=== PATIENT | female | born 1945 | race Caucasian/White ===

== ENCOUNTER 2018-12-27 10:41 | Emergency (ER) | payer MEDICARE, OTHER ==
[2018-12-27] MEDS ORDERED: NORMAL SALINE 1000 ML 1,000 ML IV ONE (11:01)
[2018-12-27 11:13] LABS: VENOUS BLOOD BASE EXCESS 1.1 mmol/L; VENOUS BLOOD HCO3 24.1 mmol/L (20-32); VENOUS BLOOD PCO2 33.4 mmHg (35-63); VENOUS BLOOD PH 7.48 (7.30-7.42)
[2018-12-27 11:14] LABS: ABSOLUTE BASOPHILS # (AUTO) 0.1 10^3/uL (0.0-0.2); ABSOLUTE EOSINOPHILS # (AUTO) 0.1 10^3/uL (0.0-0.6); ABSOLUTE LYMPHOCYTES (AUTO) 2.3 10^3/uL (0.5-4.7); ABSOLUTE MONOCYTES (AUTO) 0.8 10^3/uL (0.1-1.4); ABSOLUTE NEUT (AUTO) 7.7 10^3/uL (1.7-8.2); BASOPHILS % (AUTO) 0.5 % (0-2); EOSINOPHILS % (AUTO) 0.8 % (0-6); HEMATOCRIT 31.9 % (36.0-47.0); HEMOGLOBIN 11.1 g/dL (12.0-15.5); LYMPHOCYTES % (AUTO) 21.2 % (13-45); MEAN CORPUSCULAR HEMOGLOBIN 32.2 pg (27.0-33.4); MEAN CORPUSCULAR HGB CONC 34.8 g/dL (32.0-36.0); MEAN CORPUSCULAR VOLUME 93 fl (80-97); MONOCYTES % (AUTO) 7.3 % (3-13); PLATELET COUNT 215 10^3/uL (150-450); RED BLOOD COUNT 3.45 10^6/uL (3.72-5.28); RED CELL DISTRIBUTION WIDTH 15.2 % (11.5-14.0); SEGMENTED NEUTROPHILS % (AUTO) 70.2 % (42-78); TOTAL CELLS COUNTED % (AUTO) 100 %
[2018-12-27 11:20] LABS: INTERNATIONAL RATION (INR) 1.16; PROTHROMBIN TIME 15.4 SEC (11.4-15.4)
--- NOTE | 2018-12-27 11:34 | RADIOLOGY REPORT (SQ) ---
EXAM DESCRIPTION: CHEST SINGLE VIEW COMPLETED DATE/TIME: 12/27/2018 11:25 am REASON FOR STUDY: bed 5 sepsis protocol COMPARISON: None. EXAM PARAMETERS: NUMBER OF VIEWS: One view. TECHNIQUE: Single frontal radiographic view of the chest acquired. RADIATION DOSE: NA LIMITATIONS: None. FINDINGS: LUNGS AND PLEURA: No opacities, masses or pneumothorax. No pleural effusion. MEDIASTINUM AND HILAR STRUCTURES: No masses. Contour normal. HEART AND VASCULAR STRUCTURES: Heart normal in size. Normal vasculature. BONES: No acute findings. HARDWARE: None in the chest. OTHER: No other significant finding. IMPRESSION: NO ACUTE RADIOGRAPHIC FINDING IN THE CHEST. TECHNICAL DOCUMENTATION: JOB ID: [id number] [employer] [place]- All Rights Reserved Reading location - IP/workstation name: [email or web address]
[2018-12-27 11:35] LABS: ALANINE AMINOTRANSFERASE 22 U/L (9-52); ALBUMIN 4.4 g/dL (3.5-5.0); ALKALINE PHOSPHATASE 39 U/L (38-126); ANION GAP 14 (5-19); ASPARTATE AMINO TRANSFERASE 27 U/L (14-36); BILIRUBIN,DIRECT 0.3 mg/dL (0.0-0.4); BILIRUBIN,TOTAL 0.5 mg/dL (0.2-1.3); BLOOD UREA NITROGEN 28 mg/dL (7-20); CALCIUM 9.5 mg/dL (8.4-10.2); CARBON DIOXIDE 24 mmol/L (22-30); CHLORIDE 103 mmol/L (98-107); GLUCOSE 101 mg/dL (75-110); LIPASE 125.8 U/L (23-300); POTASSIUM 4.6 mmol/L (3.6-5.0); SODIUM 140.7 mmol/L (137-145); TOTAL PROTEIN 6.8 g/dL (6.3-8.2)
[2018-12-27 12:19] LABS: APPEARANCE,URINE SLIGHTLY-CLOUDY; BILIRUBIN,URINE NEGATIVE (NEGATIVE); COLOR,URINE YELLOW; GLUCOSE, URINE NEGATIVE (NEGATIVE); KETONES,URINE NEGATIVE (NEGATIVE); LEUKOCYTE ESTERASE,URINE NEGATIVE (NEGATIVE); NITRITE,URINE NEGATIVE (NEGATIVE); PROTEIN,URINE NEGATIVE (NEGATIVE); URINE SPECIFIC GRAVITY 1.013; UROBILINOGEN,URINE NEGATIVE mg/dL (<2.0)
--- NOTE | 2018-12-27 13:49 | ER Document Report ---
ED General - General Chief Complaint: Shortness Of Breath Stated Complaint: DIFFICULTY BREATHING Time Seen by Provider: 12/27/18 10:57 - HPI Patient complains to provider of: Shortness of breath Notes: Patient coming in for evaluation of shortness of breath. Patient is coming in from local rehab facility. Patient states she is extremely short of breath however is complaining complete sentences patient denies any chest pain abdominal pain denies any fevers or chills denies any sputum production. Shant cuevas does not look to be any obvious distress upon my evaluation. - Related Data Allergies/Adverse Reactions: No Known Allergies Allergy (Unverified 12/27/18 11:15) Past Medical History - Social History Smoking Status: Never Smoker Chew tobacco use (# tins/day): No Frequency of alcohol use: None Drug Abuse: None Family History: Reviewed & Not Pertinent Patient has suicidal ideation: No Patient has homicidal ideation: No Endocrine Medical History: Reports: Hx Diabetes Mellitus Type 2 Renal/ Medical History: Denies: Hx Peritoneal Dialysis Psychiatric Medical History: Reports: Hx Depression Past Surgical History: Reports: Hx Hysterectomy, Hx Orthopedic Surgery - bilateral knees Review of Systems - Review of Systems Constitutional: No symptoms reported EENT: No symptoms reported Cardiovascular: Dyspnea Respiratory: No symptoms reported Gastrointestinal: No symptoms reported Genitourinary: No symptoms reported Female Genitourinary: No symptoms reported Musculoskeletal: No symptoms reported Skin: No symptoms reported Hematologic/Lymphatic: No symptoms reported Neurological/Psychological: No symptoms reported -: Yes All other systems reviewed and negative Physical Exam - Vital signs Vitals: Resp Pulse Ox 22 H 100 12/27/18 10:46 12/27/18 10:46 Interpretation: Normal - General General appearance: Appears well, Alert - HEENT Head: Normocephalic, Atraumatic Eyes: Normal Pupils: PERRL - Respiratory Respiratory status: No respiratory distress Chest status: Nontender Breath sounds: Normal Chest palpation: Normal - Cardiovascular Rhythm: Regular Heart sounds: Normal auscultation Murmur: No - Abdominal Inspection: Normal Distension: No distension Bowel sounds: Normal Tenderness: Nontender Organomegaly: No organomegaly - Back Back: Normal, Nontender - Extremities General upper extremity: Normal inspection, Nontender, Normal color, Normal ROM, Normal temperature General lower extremity: Normal inspection, Nontender, Normal color, Normal ROM, Normal temperature, Normal weight bearing. No: Michaela's sign - Neurological Neuro grossly intact: Yes Cognition: Normal Orientation: AAOx4 Yohannes Coma Scale Eye Opening: Spontaneous [place] Coma Scale Verbal: Oriented [place] Coma Scale Motor: Obeys Commands Yohannes Coma Scale Total: 15 Speech: Normal Motor strength normal: LUE, RUE, LLE, RLE Sensory: Normal - Psychological Associated symptoms: Normal affect, Normal mood - Skin Skin Temperature: Warm Skin Moisture: Dry Skin Color: Normal Course - Re-evaluation Re-evalutation: 12/27/18 18:04 Laboratory examination and physical examination not reveal any critical pathology for the patient's shortness of breath. After observation. Here in ER IV fluids the reevaluate patient patient states that without any treatment for her shortness of breath patient feels better. Patient will be discharged back to the nursing care facility return to the ER if any symptoms worsen. - Vital Signs Vital signs: Temp Pulse Resp BP Pulse Ox 98.0 F 81 22 H 102/48 L 99 12/27/18 17:14 12/27/18 17:15 12/27/18 17:15 12/27/18 17:15 12/27/18 17:15 - Laboratory Result Diagrams: 12/27/18 10:50 12/27/18 10:50 Laboratory results interpreted by me: 12/27/18 12/27/18 12/27/18 10:50 10:50 10:50 WBC 11.0 H RBC 3.45 L Hgb 11.1 L Hct 31.9 L RDW 15.2 H VBG pH VBG pCO2 BUN 28 H Creatinine 1.32 H Est GFR ( Amer) 48 L Est GFR (Non-Af Amer) 40 L Lactic Acid 2.3 H 12/27/18 10:50 WBC RBC Hgb Hct RDW VBG pH 7.48 H VBG pCO2 33.4 L BUN Creatinine Est GFR ( Amer) Est GFR (Non-Af Amer) Lactic Acid Discharge - Discharge Clinical Impression: Dyspnea Qualifiers: Dyspnea type: other forms of dyspnea Qualified Code(s): R06.09 - Other forms of dyspnea Condition: Good Disposition: HOME, SELF-CARE Instructions: Dyspnea, Nonspecific ([facility]) Additional Instructions: Patient was seen for dyspnea at this time there is no signs of any pneumonia or heart failure or critical pathology on the patient's workup here in the ER. I would recommend that you follow-up with your primary care physician in the next 48 hours continue all home medications.
[2018-12-27 17:16] VITALS: BP 102/48
--- NOTE | 2018-12-27 21:37 | EKG REPORT ---
SEVERITY:- ABNORMAL ECG - SINUS RHYTHM : Confirmed by: Jeevan Donald 27-Dec-2018 21:37:08
== END 2018-12-27 17:17 | disposition home or self-care (01) ==
LOC: ER 10:41
DX: R06.02 Shortness of breath (principal); E11.9 Type 2 diabetes mellitus without complications
CPT/HCPCS: 93005; 99285; 51701; 36415; 87040; 87086; 82962; 83690; 85025; 85610; 87088; 80053; 81001; 82803; 83605; 71045; 93010; J7030

== ENCOUNTER 2019-02-24 09:58 | Inpatient (IN) | payer MEDICARE ==
[2019-02-24] MEDS ORDERED: NORMAL SALINE 1000 ML 1,000 ML IV ONE (10:14)
[2019-02-24] MEDS ORDERED: RINGERS SOLUTION,LACTATED 1,000 ML IV ONE (10:15)
--- NOTE | 2019-02-24 10:16 | ER Document Report ---
ED General - General Chief Complaint: hypotension Stated Complaint: BLOOD PRESSURE ISSUES Time Seen by Provider: 02/24/19 10:07 Notes: Patient is a 73-year-old female with dementia, diabetes mellitus, CHF, hypertension hyperlipidemia that presents to the emergency department for chief complaint of hypertension, and shortness of breath. Patient lives in a longterm, apparently had abnormal blood work, concerning for possible heart attack, she has been short of breath, patient is a very poor historian, due to her dementia and cannot provide much extra history. She apparently had an abnormal EKG as well as an outpatient. She denies any fevers, nausea, vomiting or diarrhea. Denies any chest pain at this time. No other history obtainable at this time. Past Medical History: Diabetes mellitus, CHF, GERD, hypertension, hyperlipidemia , dementia Past Surgical History: Reviewed, and not pertinent to presentation Social History: Lives in a longterm, no smoking currently Family History: Reviewed and noncontributory for presenting illness Allergies: Reviewed, see documented allergy list. REVIEW OF SYSTEMS: Complete review of systems is not obtainable at this time secondary to the patient's dementia PHYSICAL EXAMINATION: Vital signs reviewed, nursing noted reviewed. GENERAL: Elderly female, no acute distress, but does appear mildly confused, likely baseline HEAD: Atraumatic, normocephalic. EYES: Eyes appear normal, extraocular movements intact, sclera anicteric, conjunctiva are normal. ENT: nares patent, oropharynx clear without exudates. Moist mucous membranes. NECK: Normal range of motion, supple without lymphadenopathy LUNGS: Lung sounds diminished at the bases bilaterally, no acute respiratory distress HEART: Regular rate and rhythm without murmurs ABDOMEN: Soft, obese, nontender, normoactive bowel sounds. No rebound, guarding, or rigidity. No masses appreciated. EXTREMITIES: Nontender, good range of motion, bilateral lower extremity 2+ edema to the proximal tibias NEUROLOGICAL: No focal neurological deficits. Moves all extremities spontaneously Motor and sensory grossly intact on exam. PSYCH: Flat affect, appropriate but mildly confused SKIN: Warm, Dry, normal turgor, no rashes or lesions noted on exposed skin TRAVEL OUTSIDE OF THE [place] IN LAST 30 DAYS: No - Related Data Allergies/Adverse Reactions: No Known Allergies Allergy (Unverified 12/27/18 11:15) Past Medical History - Social History Smoking Status: Unknown if Ever Smoked Family History: Reviewed & Not Pertinent Endocrine Medical History: Reports: Hx Diabetes Mellitus Type 2 Renal/ Medical History: Denies: Hx Peritoneal Dialysis Psychiatric Medical History: Reports: Hx Depression Past Surgical History: Reports: Hx Hysterectomy, Hx Orthopedic Surgery - bi lateral knees Physical Exam - Vital signs Vitals: Resp 14 02/24/19 10:08 Course - Re-evaluation Re-evalutation: Patient seen and examined vital signs reviewed. Laboratory data and imaging were ordered as appropriate for the patient's presenting symptoms and complaint, with consideration of any critical or life threatening conditions that may be associated with their obtained history and exam as noted above. Patient was treated with IV fluids, and hyperkalemia cocktail including Kayexalate, calcium gluconate, sodium bicarb and placed on the sodium bicarb infusion at 150 mL's an hour, also given IV insulin and dextrose. Results were reviewed when available and demonstrated significant acute renal failure, with hyperkalemia of 6.6, severe metabolic acidosis, pH on VBG was 7.17, lactic acid was normal, no hyperglycemia The patient was re-evaluated and was improved, she initially was hypotensive, with fluid resuscitation, her blood pressure improved, patient was able to get up to the bedside commode, without orthostasis. Evaluation was most consistent with severe hyperkalemia, severe metabolic acidosis, dehydration, and acute renal failure. Results were discussed with the patient at this point after careful consideration I feel that that patient should be admitted to the hospital. This was discussed with the patient that it is in the best interest for their care to be admitted for further evaluation and management. Patient agreed with this plan of care. A call was placed to the admitted physician, Dr. Toro who graciously accepted the patient onto their service, to admit to the ICU. *Note is created using voice recognition software and may contain spelling, syntax or grammatical errors. Laboratory 02/24/19 02/24/19 02/24/19 09:40 09:40 09:40 WBC 8.7 RBC 3.43 L Hgb 11.3 L Hct 33.8 L MCV 99 H MCH 33.1 MCHC 33.5 RDW 13.8 Plt Count 183 Seg Neutrophils % 68.2 Lymphocytes % 22.4 Monocytes % 7.4 Eosinophils % 1.6 Basophils % 0.4 Absolute Neutrophils 5.9 Absolute Lymphocytes 2.0 Absolute Monocytes 0.6 Absolute Eosinophils 0.1 Absolute Basophils 0.0 PT 14.0 INR 1.03 VBG pH VBG pCO2 VBG HCO3 VBG Base Excess Sodium 136.9 L Potassium 6.6 H* Chloride 113 H Carbon Dioxide 13 L Anion Gap 11 BUN 72 H Creatinine 3.61 H Est GFR ( Amer) 15 L Est GFR (Non-Af Amer) 12 L Glucose 120 H Lactic Acid Calcium 10.7 H Total Bilirubin 0.5 Direct Bilirubin 0.3 Neonat Total Bilirubin Not Reportable Neonat Direct Bilirubin Not Reportable Neonat Indirect Bili Not Reportable AST 25 ALT 11 Alkaline Phosphatase 35 L Creatine Kinase CK-MB (CK-2) Troponin I Total Protein 7.6 Albumin 4.5 02/24/19 02/24/19 02/24/19 09:40 09:40 09:40 WBC RBC Hgb Hct MCV MCH MCHC RDW Plt Count Seg Neutrophils % Lymphocytes % Monocytes % Eosinophils % Basophils % Absolute Neutrophils Absolute Lymphocytes Absolute Monocytes Absolute Eosinophils Absolute Basophils PT INR VBG pH VBG pCO2 VBG HCO3 VBG Base Excess Sodium Potassium Chloride Carbon Dioxide Anion Gap BUN Creatinine Est GFR ( Amer) Est GFR (Non-Af Amer) Glucose Lactic Acid Calcium Total Bilirubin Direct Bilirubin Neonat Total Bilirubin Neonat Direct Bilirubin Neonat Indirect Bili AST ALT Alkaline Phosphatase Creatine Kinase 44 CK-MB (CK-2) 0.64 Troponin I < 0.012 Total Protein Albumin 02/24/19 02/24/19 10:18 11:30 WBC RBC Hgb Hct MCV MCH MCHC RDW Plt Count Seg Neutrophils % Lymphocytes % Monocytes % Eosinophils % Basophils % Absolute Neutrophils Absolute Lymphocytes Absolute Monocytes Absolute Eosinophils Absolute Basophils PT INR VBG pH 7.17 L* VBG pCO2 37.7 VBG HCO3 13.4 L VBG Base Excess -14.2 Sodium Potassium Chloride Carbon Dioxide Anion Gap BUN Creatinine Est GFR ( Amer) Est GFR (Non-Af Amer) Glucose Lactic Acid 1.9 Calcium Total Bilirubin Direct Bilirubin Neonat Total Bilirubin Neonat Direct Bilirubin Neonat Indirect Bili AST ALT Alkaline Phosphatase Creatine Kinase CK-MB (CK-2) Troponin I Total Protein Albumin Chest X-Ray 02/24/19 10:15 IMPRESSION: NO ACUTE RADIOGRAPHIC FINDING IN THE CHEST. 02/24/19 14:16 - Vital Signs Vital signs: Temp Pulse Resp BP Pulse Ox 98.0 F 19 105/61 93 02/24/19 10:23 02/24/19 13:01 02/24/19 13:00 02/24/19 13:00 - Laboratory Result Diagrams: 02/24/19 09:40 02/24/19 09:40 Laboratory results interpreted by me: 02/24/19 02/24/19 02/24/19 09:40 09:40 11:30 RBC 3.43 L Hgb 11.3 L Hct 33.8 L MCV 99 H VBG pH 7.17 L* VBG HCO3 13.4 L Sodium 136.9 L Potassium 6.6 H* Chloride 113 H Carbon Dioxide 13 L BUN 72 H Creatinine 3.61 H Est GFR ( Amer) 15 L Est GFR (Non-Af Amer) 12 L Glucose 120 H Calcium 10.7 H Alkaline Phosphatase 35 L - EKG Interpretation by Me Additional EKG results interpreted by me: EKG demonstrates sinus rhythm with a ventricular rate of 79 bpm, normal axis, QTC 381 ms, no evidence of acute ischemia in this EKG this is compared with the prior EKG from 12/27/2018, without significant change. Critical Care Note - Critical Care Note Total time excluding time spent on procedures (mins): 55 Comments: Critical care time 55 minutes exclusive from separate billable procedures for a patient requiring complex medical decision making, and high potential for clinical deterioration. In a patient with acute hyperkalemia, renal failure, requiring resuscitation, and active management. Time spent obtaining history from patient or surrogate, discussions with consultants, development of treatment plan with patient or surrogate, evaluation of patient's response to treatment, examination of patient, ordering and performing treatments and interventions, ordering and review of laboratory studies, re-evaluation of patient's condition, ordering and review of radiographic studies and review of old charts Discharge - Discharge Clinical Impression: Metabolic acidosis, Hyperkalemia Acute renal failure Qualifiers: Acute renal failure type: unspecified Qualified Code(s): N17.9 - Acute kidney failure, unspecified Condition: Serious Disposition: ADMITTED INPATIENT Admitting Provider: Muna (Hospitalist) Unit Admitted: ICU
[2019-02-24 10:29] LABS: INTERNATIONAL RATION (INR) 1.03
[2019-02-24 10:37] LABS: ABSOLUTE EOSINOPHILS # (AUTO) 0.1 10^3/uL (0.0-0.6); ABSOLUTE MONOCYTES (AUTO) 0.6 10^3/uL (0.1-1.4); ABSOLUTE NEUT (AUTO) 5.9 10^3/uL (1.7-8.2); BASOPHILS % (AUTO) 0.4 % (0-2); EOSINOPHILS % (AUTO) 1.6 % (0-6); HEMATOCRIT 33.8 % (36.0-47.0); HEMOGLOBIN 11.3 g/dL (12.0-15.5); LYMPHOCYTES % (AUTO) 22.4 % (13-45); MEAN CORPUSCULAR HEMOGLOBIN 33.1 pg (27.0-33.4); MEAN CORPUSCULAR HGB CONC 33.5 g/dL (32.0-36.0); MEAN CORPUSCULAR VOLUME 99 fl (80-97); MONOCYTES % (AUTO) 7.4 % (3-13); PLATELET COUNT 183 10^3/uL (150-450); RED BLOOD COUNT 3.43 10^6/uL (3.72-5.28); RED CELL DISTRIBUTION WIDTH 13.8 % (11.5-14.0); SEGMENTED NEUTROPHILS % (AUTO) 68.2 % (42-78); TOTAL CELLS COUNTED % (AUTO) 100 %; WHITE BLOOD COUNT 8.7 10^3/uL (4.0-10.5)
--- NOTE | 2019-02-24 10:39 | RADIOLOGY REPORT (SQ) ---
EXAM DESCRIPTION: CHEST SINGLE VIEW COMPLETED DATE/TIME: 02/24/2019 10:30 am REASON FOR STUDY: dyspnea COMPARISON: 12/27/2018 EXAM PARAMETERS: NUMBER OF VIEWS: One view. TECHNIQUE: Single frontal radiographic view of the chest acquired. RADIATION DOSE: NA LIMITATIONS: None. FINDINGS: LUNGS AND PLEURA: No opacities, masses or pneumothorax. No pleural effusion. MEDIASTINUM AND HILAR STRUCTURES: No masses. Contour normal. HEART AND VASCULAR STRUCTURES: Heart normal in size. Normal vasculature. BONES: No acute findings. HARDWARE: None in the chest. OTHER: No other significant finding. IMPRESSION: NO ACUTE RADIOGRAPHIC FINDING IN THE CHEST. TECHNICAL DOCUMENTATION: JOB ID: [id number] [employer]- All Rights Reserved Reading location - IP/workstation name: [email or web address]
[2019-02-24 10:49] LABS: ALANINE AMINOTRANSFERASE 11 U/L (9-52); ALBUMIN 4.5 g/dL (3.5-5.0); ALKALINE PHOSPHATASE 35 U/L (38-126); ANION GAP 11 (5-19); ASPARTATE AMINO TRANSFERASE 25 U/L (14-36); BILIRUBIN,DIRECT 0.3 mg/dL (0.0-0.4); BILIRUBIN,TOTAL 0.5 mg/dL (0.2-1.3); BLOOD UREA NITROGEN 72 mg/dL (7-20); CALCIUM 10.7 mg/dL (8.4-10.2); CARBON DIOXIDE 13 mmol/L (22-30); CHLORIDE 113 mmol/L (98-107); GLUCOSE 120 mg/dL (75-110); SODIUM 136.9 mmol/L (137-145); TOTAL PROTEIN 7.6 g/dL (6.3-8.2)
[2019-02-24 10:53] LABS: POTASSIUM 6.6 mmol/L (3.6-5.0)
[2019-02-24] MEDS ORDERED: INSULIN REG, HUMAN 100 UNIT/ML 3 ML VIAL (PYX) IV ONE (10:56)
[2019-02-24] MEDS ORDERED: SODIUM BICARBONATE 8.4% INJ 50 MEQ/50 ML DISP.SYRIN IV ONE ×2 (10:56→12:12)
[2019-02-24] MEDS ORDERED: DEXTROSE 50%-WATER 25 GM/50 ML DISP.SYRIN IV ONE (10:56)
[2019-02-24] MEDS ORDERED: CALCIUM GLUCONATE 1000 MG/10 ML INJ IV ONE (10:56)
[2019-02-24] MEDS ORDERED: SODIUM POLYSTYRENE SULFONATE 15 GM/60 ML PO ONE ×2 (10:57→16:19)
[2019-02-24 12:06] LABS: VENOUS BLOOD BASE EXCESS -14.2 mmol/L; VENOUS BLOOD HCO3 13.4 mmol/L (20-32); VENOUS BLOOD PCO2 37.7 mmHg (35-63)
[2019-02-24 12:11] LABS: VENOUS BLOOD PH 7.17 (7.30-7.42)
[2019-02-24 13:02] LABS: APPEARANCE,URINE CLEAR; BILIRUBIN,URINE NEGATIVE (NEGATIVE); COLOR,URINE STRAW; GLUCOSE, URINE 150 mg/dL (NEGATIVE); KETONES,URINE NEGATIVE (NEGATIVE); LEUKOCYTE ESTERASE,URINE NEGATIVE (NEGATIVE); NITRITE,URINE NEGATIVE (NEGATIVE); PROTEIN,URINE NEGATIVE (NEGATIVE); URINE SPECIFIC GRAVITY 1.009; UROBILINOGEN,URINE NEGATIVE mg/dL (<2.0)
--- NOTE | 2019-02-24 13:23 | EKG REPORT ---
SEVERITY:- BORDERLINE ECG - SINUS RHYTHM LOW VOLTAGE THROUGHOUT : Confirmed by: Elder Thomas MD 24-Feb-2019 13:22:21
[2019-02-24] MEDS ORDERED: MAG HYDROX/AL HYDROX/SIMETH SUSP 30 ML UDCUP PO PRN (13:34)
[2019-02-24] MEDS ORDERED: ACETAMINOPHEN 650 MG SUPP.RECT PR PRN (13:34)
[2019-02-24] MEDS ORDERED: ACETAMINOPHEN 325 MG TABLET PO PRN (13:34)
[2019-02-24] MEDS ORDERED: ONDANSETRON 4 MG TAB.RAPDIS PO PRN (13:34)
[2019-02-24] MEDS ORDERED: ONDANSETRON HCL INJ/PF 4 MG/2 ML SDV IV PRN (13:34)
[2019-02-24] MEDS ORDERED: DEXTROSE 50%-WATER 25 GM/50 ML DISP.SYRIN IV PRN ×2 (13:51)
[2019-02-24] MEDS ORDERED: GLUCAGON,HUMAN RECOMB 1 MG INJ IM PRN (13:51)
[2019-02-24] MEDS ORDERED: DEXTROSE 40% GEL 15 GM TUBE PO PRN ×2 (13:51)
[2019-02-24] MEDS ORDERED: PROMETHAZINE HCL 25 MG TABLET PO PRN (13:54)
[2019-02-24] MEDS: DEXTROSE 5%-WATER 1000 ML 1,000 ML with SODIUM BICARBONATE 150 MEQ IV PRN ×2 (14:34)
[2019-02-24] MEDS: HEPARIN SOD (PORCINE) 5,000 UNIT/ML 1 ML SYRINGE SUBCUT SCH ×2 (14:34→21:19)
[2019-02-24 15:53] LABS: ANION GAP 9 (5-19); BLOOD UREA NITROGEN 64 mg/dL (7-20); CALCIUM 10.2 mg/dL (8.4-10.2); CARBON DIOXIDE 13 mmol/L (22-30); CHLORIDE 116 mmol/L (98-107); GLUCOSE 85 mg/dL (75-110); SODIUM 137.8 mmol/L (137-145)
[2019-02-24 15:54] LABS: CREATINE KINASE MB 0.86 ng/mL (<4.55)
[2019-02-24 16:03] LABS: POTASSIUM 6.2 mmol/L (3.6-5.0)
[2019-02-24 16:09] LABS: TROPONIN I < 0.012 ng/mL
[2019-02-24] MEDS: PANTOPRAZOLE SODIUM 40 MG TABLET.DR PO SCH (16:38)
[2019-02-24] MEDS: INSULIN LISPRO 100 UNIT/ML 3 ML VIAL SUBCUT SCH ×2 (16:41→21:21)
[2019-02-24] MEDS ORDERED: PATIROMER 8.4 GM SUSP PACKET PO SCH ×2 (17:00→20:00)
[2019-02-24] MEDS ORDERED: LEVALBUTEROL HCL NEB 1.25 MG/3 ML AMPUL NEB PRN (17:49)
--- NOTE | 2019-02-24 19:52 | PDOC H&P ---
History of Present Illness Admission Date/PCP: 02/24/19 12:36 Patient complains of: referred from her [facility] residential facility for abnormal labs and abnormal EKG obtained February 21. History of Present Illness: BETO PAEZ is a 73 year old female who evidently reported chest pain earlier in the week at her primary care residential facility. An EKG was done. The tracing is not available but the report is. The report noted peaked T waves as well as concave ST elevation 0.5 mm in the inferior leads. There was a question of ischemia versus pericarditis. The patient was also reported to have a positive troponin at the time. Patient presents to the emergency department for further evaluation. Her most prominent symptom is difficulty breathing and not feeling well in general. She is a poor historian due to underlying dementia. She was found to have a normal anion gap metabolic acidosis and marginal blood pressure with hypoxia. Treatment with bicarbonate, volume and oxygen therapy were initiated in the emergency department and the patient was referred to the hospital service for admission. Past Medical History Past Medical History: The patient is very poor historian. Cardiac Medical History: Denies: Atrial Fibrillation, Congestive Heart Failure, Myocardial Infarction Pulmonary Medical History: Denies: Asthma, Bronchitis, Chronic Obstructive Pulmonary Disease (COPD) EENT Medical History: Denies: Cataracts, Ears, Nose, Throat Neurological Medical History: Denies: Hemorrhagic CVA, Ischemic CVA Endocrine Medical History: Reports: Diabetes Mellitus Type 2, Hypothyroidism Renal/ Medical History: Denies: End Stage Renal Disease, Nephrolithiasis Malignancy Medical History: Denies: None GI Medical History: Denies: Cirrhosis, Hepatitis Musculoskeltal Medical History: Denies: Fibromyalgia, Gout Skin Medical History: Denies: Eczema, Psoriasis Psychiatric Medical History: Reports: Dementia, Depression Hematology: Reports: Anemia Past Surgical History Past Surgical History: Reports: Hysterectomy, Orthopedic Surgery - bilateral knees Social History Information Source: Patient - Patient is a very poor historian due to dementia. So information was also gathered from records, [facility] Records Lives with: Other - [facility] residential facility Smoking Status: Never Smoker Frequency of Alcohol Use: None Hx Recreational Drug Use: No Hx Prescription Drug Abuse: No - Advance Directive Resuscitation Status: Do Not Resuscitate Surrogate healthcare decision maker:: Her son is the power of ip attorney. There is a copy of this documentation that came with the patient from her residential facility. I did call him to update him on her condition and he confirmed that the patient is DO NOT RESUSCITATE. Family History Family History: CAD, DM, Hypertension, Malignancy Parental Family History Reviewed: Yes Children Family History Reviewed: Yes Sibling(s) Family History Reviewed.: Yes Medication/Allergy Home Medications: Albuterol Sulfate [Proair HFA Inhalation Aerosol 8.5 gm MDI] 2 puff IH Q4HP PRN 02/24/19 Atorvastatin Calcium [Lipitor 40 mg Tablet] 40 mg PO QHS 02/24/19 Dexlansoprazole [Dexilant 60 mg Capsule] 60 mg PO BID 02/24/19 Donepezil HCl [Aricept] 10 mg PO DAILY 02/24/19 Duloxetine HCl [Cymbalta] 60 mg PO DAILY 02/24/19 Ferrous Sulfate [Feosol 325 mg Tablet] 325 mg PO DAILY 02/24/19 Fluticasone Propionate [Flonase Nasal [place] 50 Mcg/[place] 16 gm] 1 spray NASL DAILYP PRN 02/24/19 Furosemide [Lasix 40 mg Tablet] 40 mg PO DAILY 02/24/19 Guaifenesin [Robafen] 10 ml PO Q6HP PRN 02/24/19 Hydrocodone/Acetaminophen [[place] 7.5-325 mg Tablet] 1 tab PO Q12 02/24/19 Levothyroxine Sodium [Synthroid 0.075 mg Tablet] 0.075 mg PO Q6AM 02/24/19 Lisinopril [Prinivil 40 mg Tablet] 40 mg PO DAILY 02/24/19 Mag Hydrox/Al Hydrox/Simeth [Maalox Plus Susp 30 Udcup] 30 ml PO Q4HP PRN 02/24/19 Memantine HCl [Namenda 10 mg Tablet] 10 mg PO BID 02/24/19 Metformin HCl [Glucophage XR 500 mg Tablet] 1,000 mg PO BID 02/24/19 Ranitidine HCl [Zantac 150 mg Tablet] 150 mg PO BID 02/24/19 Simethicone [Mylicon 80 mg Chewable Tablet] 80 mg PO BID 02/24/19 Spironolactone [Aldactone] 50 mg PO BID 02/24/19 Tolterodine Tartrate [Detrol LA] 2 mg PO DAILY 02/24/19 Allergies/Adverse Reactions: No Known Allergies Allergy (Unverified 12/27/18 11:15) Review of Systems Constitutional: PRESENT: anorexia, weakness. ABSENT: fever(s), night sweats Eyes: ABSENT: visual disturbances Ears: ABSENT: hearing changes Nose, Mouth, and Throat: ABSENT: mouth pain, sore throat Cardiovascular: ABSENT: chest pain, edema, palpitations Respiratory: PRESENT: dyspnea. ABSENT: cough, hemoptysis Gastrointestinal: ABSENT: abdominal pain, heartburn, nausea, vomiting Genitourinary: ABSENT: dysuria, hematuria Musculoskeletal: ABSENT: joint swelling Integumentary: ABSENT: lesions, rash, wounds Neurological: PRESENT: memory loss. ABSENT: abnormal speech, dizziness, focal weakness Psychiatric: PRESENT: depression. ABSENT: hallucinations Endocrine: ABSENT: cold intolerance, heat intolerance, polydipsia, polyuria Hematologic/Lymphatic: ABSENT: easy bruising, lymphadenopathy Physical Exam Vital Signs: Temp Pulse Resp BP Pulse Ox 98.0 F 19 105/61 93 02/24/19 10:23 02/24/19 13:01 02/24/19 13:00 02/24/19 13:00 Intake & Output 02/23/19 02/24/19 02/25/19 06:59 06:59 06:59 Intake Total 1000 Balance 1000 Weight 86.183 kg General appearance: PRESENT: cooperative, mild distress, well-developed, other - Nasal cannula in place Head exam: PRESENT: atraumatic, normocephalic Eye exam: PRESENT: conjunctiva pink. ABSENT: scleral icterus Ear exam: PRESENT: normal external ear exam Neck exam: ABSENT: carotid bruit, lymphadenopathy Respiratory exam: PRESENT: clear to auscultation madie, symmetrical, unlabored. ABSENT: accessory muscle use, rales, rhonchi, tachypnea, wheezes Cardiovascular exam: PRESENT: RRR, +S1, +S2. ABSENT: systolic murmur GI/Abdominal exam: PRESENT: normal bowel sounds, soft. ABSENT: distended, tenderness Rectal exam: PRESENT: deferred Gentrourinary exam: PRESENT: indwelling catheter Extremities exam: ABSENT: pedal edema Musculoskeletal exam: PRESENT: normal inspection Neurological exam: PRESENT: alert, awake, oriented to person, oriented to place Psychiatric exam: PRESENT: flat affect. ABSENT: agitated, anxious, unusual affect Focused psych exam: ABSENT: delusional, restlessness Skin exam: ABSENT: cyanosis, mottled, rash, vesicles Results Laboratory Results: 02/24/19 09:40 02/24/19 09:40 02/24/19 02/24/19 02/24/19 09:40 09:40 10:18 WBC 8.7 RBC 3.43 L Hgb 11.3 L Hct 33.8 L MCV 99 H MCH 33.1 MCHC 33.5 RDW 13.8 Plt Count 183 Seg Neutrophils % 68.2 Lymphocytes % 22.4 Monocytes % 7.4 Eosinophils % 1.6 Basophils % 0.4 Absolute Neutrophils 5.9 Absolute Lymphocytes 2.0 Absolute Monocytes 0.6 Absolute Eosinophils 0.1 Absolute Basophils 0.0 VBG pH VBG pCO2 VBG HCO3 VBG Base Excess Sodium 136.9 L Potassium 6.6 H* Chloride 113 H Carbon Dioxide 13 L Anion Gap 11 BUN 72 H Creatinine 3.61 H Est GFR ( Amer) 15 L Est GFR (Non-Af Amer) 12 L Glucose 120 H Lactic Acid 1.9 Calcium 10.7 H Total Bilirubin 0.5 AST 25 ALT 11 Alkaline Phosphatase 35 L Total Protein 7.6 Albumin 4.5 Urine Color Urine Appearance Urine pH Ur Specific [place] Urine Protein Urine Glucose (UA) Urine Ketones Urine Blood Urine Nitrite Ur Leukocyte Esterase Urine WBC (Auto) Urine RBC (Auto) 02/24/19 02/24/19 11:30 12:39 WBC RBC Hgb Hct MCV MCH MCHC RDW Plt Count Seg Neutrophils % Lymphocytes % Monocytes % Eosinophils % Basophils % Absolute Neutrophils Absolute Lymphocytes Absolute Monocytes Absolute Eosinophils Absolute Basophils VBG pH 7.17 L* VBG pCO2 37.7 VBG HCO3 13.4 L VBG Base Excess -14.2 Sodium Potassium Chloride Carbon Dioxide Anion Gap BUN Creatinine Est GFR ( Amer) Est GFR (Non-Af Amer) Glucose Lactic Acid Calcium Total Bilirubin AST ALT Alkaline Phosphatase Total Protein Albumin Urine Color STRAW Urine Appearance CLEAR Urine pH 5.0 Ur Specific [place] 1.009 Urine Protein NEGATIVE Urine Glucose (UA) 150 H Urine Ketones NEGATIVE Urine Blood NEGATIVE Urine Nitrite NEGATIVE Ur Leukocyte Esterase NEGATIVE Urine WBC (Auto) 2 Urine RBC (Auto) 0 02/24/19 02/24/19 02/24/19 09:40 09:40 09:40 Creatine Kinase 44 CK-MB (CK-2) 0.64 Troponin I < 0.012 Impressions: Chest X-Ray 02/24/19 10:15 IMPRESSION: NO ACUTE RADIOGRAPHIC FINDING IN THE CHEST. Assessment and Plan - Diagnosis (1) Acute renal failure Qualifiers: Acute renal failure type: unspecified Qualified Code(s): N17.9 - Acute kidney failure, unspecified Is this a current diagnosis for this admission?: Yes Plan: It is difficult to know the exact etiology of the acute renal failure. It is possible and most likely that it is a combination of factors. Hypovolemia with ongoing use of diuretics and potassium sparing agents likely worsened over time. At a point the metformin probably contributed as well. It is unlikely that this occurred over the course of 1 or 2 days. Unfortunately we do not have the actual blood work or EKG tracing from several days ago at the facility. If her acute kidney failure preceded the chest discomfort it could be uremic perica rditis. Regardless, all of her diuretic and NOHELIA inhibitor medications will be held. She will be given IV fluids with bicarbonate. We will continue to monitor her urine output and renal function. (2) Hyperkalemia Is this a current diagnosis for this admission?: Yes Plan: The hyperkalemia is most likely due to the acute kidney failure with ongoing use of Spironolactone. There was also lisinopril and continue issues.. The patient was given insulin and glucose as well as bicarbonate. She received several doses of Kayexalate and I started Veltassa. I have ordered a repeat EKG for tomorrow. The peaked T waves should resolve with improved serum potassium levels. (3) Metabolic acidosis Is this a current diagnosis for this admission?: Yes Plan: The patient has been started on bicarbonate infusion. We will repeat blood gases. The urine pH is at the low end of normal. Adverse effects of medications compounding the renal insufficiency also likely contributed. (4) Hypotension Qualifiers: Hypotension type: hypotension due to hypovolemia Qualified Code(s): I95.89 - Other hypotension; E86.1 - Hypovolemia Is this a current diagnosis for this admission?: Yes Plan: The patient has thus far responded to IV fluids. We will try and keep her map rater than 65. She may require vasopressor therapy. Proceeding with vasopress ors is in fact okay with the patient's son. (5) Acute respiratory failure with hypoxia Is this a current diagnosis for this admission?: Yes Plan: The patient was hypoxic and required supplemental oxygen at the time of admission. We will try and maintain pulse oximetry above 90%. (7) Dementia Qualifiers: Dementia type: Alzheimer's disease Alzheimer's disease onset: unspecified onset Dementia behavioral disturbance: without behavioral disturbance Qualified Code(s): G30.9 - Alzheimer's disease, unspecified; F02.80 - Dementia in other diseases classified elsewhere without behavioral disturbance Is this a current diagnosis for this admission?: Yes Plan: The patient is a resident at a memory care facility. We will continue her Namenda and Aricept at this time. (8) Gastroesophageal reflux disease Qualifiers: Esophagitis presence: without esophagitis Qualified Code(s): K21.9 - Gastro-esophageal reflux disease without esophagitis Is this a current diagnosis for this admission?: Yes Plan: Continue proton pump therapy. We will use Protonix since we do not carry Dexilant. (9) Hypothyroidism Qualifiers: Hypothyroidism type: unspecified Qualified Code(s): E03.9 - Hypothyroidism, unspecified Is this a current diagnosis for this admission?: Yes Plan: Continue levothyroxine therapy. (10) Hypertension Qualifiers: Hypertension type: essential hypertension Qualified Code(s): I10 - Essential (primary) hypertension Is this a current diagnosis for this admission?: Yes Plan: All antihypertensive medications will be held at this time. Resume medications when clinically appropriate. - Time Time Spent with patient: 80 minutes Time Spent with patient: 35 or more minutes Medications reviewed and adjusted accordingly: Yes Anticipated discharge: Other - Return to her memory care residents - Inpatient Certification Based on my medical assessment, after consideration of the patient's comorbidities, presenting symptoms, or acuity I expect that the services needed warrant INPATIENT care.: Yes I certify that my determination is in accordance with my understanding of Medicare's requirements for reasonable and necessary INPATIENT services [42 CFR 412.3e].: Yes Medical Necessity: Significant Comorbidiites Make Outpatient Treatment Too Risky, Need Close Monitoring Due to Risk of Patient Decompensation, Need For IV Fluids, Need For Continuous Telemetry Monitoring, Risk of Complication if Not Cared For in Hospital Post Hospital Care: D/C Weigh Boss Documentation
[2019-02-24] MEDS: LORAZEPAM 0.5 MG TABLET PO PRN (20:37)
[2019-02-24] MEDS: HYDROCODONE/ACETAMINOPHEN 5-325 MG TABLET PO PRN (20:37)
[2019-02-24 20:44] LABS: CREATINE KINASE MB 0.62 ng/mL (<4.55)
[2019-02-24 20:45] LABS: ARTERIAL BLOOD BASE EXCESS -7.2 mmol/L; ARTERIAL BLOOD H2CO3 0.84 mmol/L (1.05-1.35); ARTERIAL BLOOD HCO3 16.5 mmol/L (20-24); ARTERIAL BLOOD O2 SATURATION 98.3 % (94-98); ARTERIAL BLOOD PCO2 27.9 mmHg (35-45); ARTERIAL BLOOD PH 7.39 (7.35-7.45); ARTERIAL BLOOD PO2 118.2 mmHg (80-100); ARTERIAL BLOOD TOTAL CO2 17.3 mmol/L (21-25)
[2019-02-24 20:46] LABS: ARTERIAL BLOOD FIO2 2L
[2019-02-24 20:48] LABS: TROPONIN I < 0.012 ng/mL
[2019-02-24] MEDS: MEMANTINE HCL 10 MG TABLET PO SCH (21:19)
[2019-02-24] MEDS ORDERED: SODIUM BICARBONATE 8.4% INJ 50 MEQ/50 ML DISP.SYRIN ONE (23:53)
[2019-02-25] MEDS: DEXTROSE 5%-WATER 1000 ML 1,000 ML with SODIUM BICARBONATE 150 MEQ IV PRN ×2 (00:06)
[2019-02-25 02:12] LABS: ABSOLUTE EOSINOPHILS # (AUTO) 0.2 10^3/uL (0.0-0.6); ABSOLUTE MONOCYTES (AUTO) 0.5 10^3/uL (0.1-1.4); TOTAL CELLS COUNTED % (AUTO) 100 %
[2019-02-25 02:13] LABS: MEAN CORPUSCULAR VOLUME 96 fl (80-97)
[2019-02-25 02:17] LABS: HEMATOCRIT 26.1 % (36.0-47.0); MEAN CORPUSCULAR HEMOGLOBIN 33.1 pg (27.0-33.4); MEAN CORPUSCULAR HGB CONC 34.7 g/dL (32.0-36.0); RED BLOOD COUNT 2.73 10^6/uL (3.72-5.28); WHITE BLOOD COUNT 6.9 10^3/uL (4.0-10.5)
[2019-02-25 02:18] LABS: ABSOLUTE LYMPHOCYTES (AUTO) 2.3 10^3/uL (0.5-4.7); BASOPHILS % (AUTO) 0.6 % (0-2); EOSINOPHILS % (AUTO) 2.5 % (0-6); LYMPHOCYTES % (AUTO) 32.5 % (13-45); MONOCYTES % (AUTO) 7.3 % (3-13); PLATELET COUNT 138 10^3/uL (150-450); RED CELL DISTRIBUTION WIDTH 13.6 % (11.5-14.0); SEGMENTED NEUTROPHILS % (AUTO) 57.1 % (42-78)
[2019-02-25 02:24] LABS: ANION GAP 8 (5-19); BLOOD UREA NITROGEN 48 mg/dL (7-20); CALCIUM 9.7 mg/dL (8.4-10.2); CARBON DIOXIDE 22 mmol/L (22-30); CHLORIDE 108 mmol/L (98-107); GLUCOSE 108 mg/dL (75-110); SODIUM 138.1 mmol/L (137-145)
[2019-02-25 02:36] LABS: CREATINE KINASE MB 0.59 ng/mL (<4.55)
[2019-02-25 02:38] LABS: TROPONIN I < 0.012 ng/mL
[2019-02-25 02:56] LABS: POTASSIUM 4.2 mmol/L (3.6-5.0)
[2019-02-25] MEDS ORDERED: MAGNESIUM SULFATE/D5W 1 GM/100 ML RTUPB IV ONE ×2 (03:33→03:50)
[2019-02-25] MEDS: PANTOPRAZOLE SODIUM 40 MG TABLET.DR PO SCH ×2 (05:20→16:18)
[2019-02-25] MEDS: LEVOTHYROXINE SODIUM 0.075 MG TABLET PO SCH (05:20)
[2019-02-25] MEDS: HEPARIN SOD (PORCINE) 5,000 UNIT/ML 1 ML SYRINGE SUBCUT SCH ×3 (05:21→21:21)
[2019-02-25 05:42] LABS: ARTERIAL BLOOD BASE EXCESS 6.7 mmol/L; ARTERIAL BLOOD H2CO3 1.09 mmol/L (1.05-1.35); ARTERIAL BLOOD HCO3 29.7 mmol/L (20-24); ARTERIAL BLOOD O2 SATURATION 98.5 % (94-98); ARTERIAL BLOOD PCO2 36.3 mmHg (35-45); ARTERIAL BLOOD PH 7.53 (7.35-7.45); ARTERIAL BLOOD PO2 110.3 mmHg (80-100); ARTERIAL BLOOD TOTAL CO2 30.8 mmol/L (21-25)
[2019-02-25 05:43] LABS: ARTERIAL BLOOD FIO2 2L
[2019-02-25] MEDS: LORAZEPAM 0.5 MG TABLET PO PRN (05:52)
[2019-02-25] MEDS: HYDROCODONE/ACETAMINOPHEN 5-325 MG TABLET PO PRN ×2 (05:52→10:19)
--- NOTE | 2019-02-25 06:51 | EKG REPORT ---
SEVERITY:- NORMAL ECG - SINUS RHYTHM : Confirmed by: Elder Thomas MD 25-Feb-2019 06:50:36
[2019-02-25] MEDS ORDERED: GUAIFENESIN SYRP 200 MG/10 ML UDC PO PRN (07:55)
[2019-02-25] MEDS ORDERED: FLUTICASONE NASAL SPRAY 50 MCG/SPRY 120 SPRAY/16 GM NASL PRN (07:55)
[2019-02-25] MEDS ORDERED: MAG HYDROX/AL HYDROX/SIMETH SUSP 30 ML UDCUP PO PRN (07:55)
[2019-02-25] MEDS ORDERED: ALBUTEROL SULFATE HFA (90 MCG/PUFF) 200 PUFF/8.5 GM MDI IH PRN (07:55)
[2019-02-25] MEDS ORDERED: (PENDING PHARMACY ID) (Donepezil Hcl [Aricept] 10 MG) PO SCH (08:00)
[2019-02-25] MEDS ORDERED: FERROUS SULFATE 325 MG TABLET PO SCH (08:00)
[2019-02-25] MEDS ORDERED: HYDROCODONE/ACETAMINOPHEN 7.5-325 MG TABLET PO SCH (08:00)
[2019-02-25] MEDS ORDERED: (PENDING PHARMACY ID) (Tolterodine Tartrate [Detrol La] 2 MG) PO SCH (08:00)
[2019-02-25] MEDS ORDERED: LEVOTHYROXINE SODIUM 0.075 MG TABLET PO SCH (08:00)
[2019-02-25] MEDS: INSULIN LISPRO 100 UNIT/ML 3 ML VIAL SUBCUT SCH ×4 (08:30→21:10)
--- NOTE | 2019-02-25 09:40 | PDOC PROGRESS REPORT ---
Subjective Progress Note for:: 02/25/19 Subjective:: 73 year old female who evidently reported chest pain earlier in the week at her primary care residential facility. An EKG was done. The tracing is not available but the report is. The report noted peaked T waves as well as concave ST elevation 0.5 mm in the inferior leads. There was a question of ischemia versus pericarditis. The patient was also reported to have a positive troponin at the time. Patient presents to the emergency department for further evalu ation. Her most prominent symptom is difficulty breathing and not feeling well in general. She is a poor historian due to underlying dementia. She was found to have a normal anion gap metabolic acidosis and marginal blood pressure with hypoxia. Treatment with bicarbonate, volume and oxygen therapy were initiated in the emergency department and the patient was referred to the hospital service for admission. 73-year-old female admitted for multiple medical problems. Found to be hypoxic in the emergency room pulse ox is 100% on 1.5 L this morning. Chest x-ray was negative for pneumonia. Patient also have hyperkalemia on spironolactone and lisinopril those medications are discontinued now the potassium is 4.2 patient also received Kayexalate and Victoza be going to discontinue Kayexalate and Veltassa today. Patient also have normal anion gap metabolic acidosis with bicarb of 13 and with bicarb infusions bicarb is improved to 22 today. No acute events in the last 24 hours. Patient is afebrile. Blood pressures are still on the softer side 107/55. Patient able to give her name and date of . Reason For Visit: ACUTE RENAL FAILURE,METABOLIC ACIDOSIS, Physical Exam Vital Signs: Temp Pulse Resp BP Pulse Ox 99.0 F 79 26 H 109/58 L 100 02/25/19 08:00 02/25/19 08:00 02/25/19 08:00 02/25/19 08:00 02/25/19 08:00 Intake & Output 02/24/19 02/25/19 02/26/19 06:59 06:59 06:59 Intake Total 3100 Output Total 2150 125 Balance 950 -125 Weight 82 kg General appearance: PRESENT: no acute distress, obese Head exam: PRESENT: atraumatic Eye exam: PRESENT: PERRLA Mouth exam: PRESENT: moist, tongue midline Neck exam: ABSENT: carotid bruit, JVD, lymphadenopathy, thyromegaly Respiratory exam: PRESENT: clear to auscultation madie. ABSENT: rales, rhonchi, wheezes Cardiovascular exam: PRESENT: systolic murmur GI/Abdominal exam: PRESENT: normal bowel sounds, soft. ABSENT: distended, guarding, mass, organolmegaly, rebound, tenderness Extremities exam: PRESENT: full ROM. ABSENT: calf tenderness, clubbing, pedal edema Neurological exam: PRESENT: alert, awake, oriented to person, oriented to place, oriented to time, oriented to situation, CN II-XII grossly intact. ABSENT: motor sensory deficit Psychiatric exam: PRESENT: appropriate affect, normal mood. ABSENT: homicidal ideation, suicidal ideation Results Laboratory Results: 02/25/19 02:03 02/25/19 02:03 02/24/19 02/24/19 02/24/19 09:40 09:40 10:18 WBC 8.7 RBC 3.43 L Hgb 11.3 L Hct 33.8 L MCV 99 H MCH 33.1 MCHC 33.5 RDW 13.8 Plt Count 183 Seg Neutrophils % 68.2 Lymphocytes % 22.4 Monocytes % 7.4 Eosinophils % 1.6 Basophils % 0.4 Absolute Neutrophils 5.9 Absolute Lymphocytes 2.0 Absolute Monocytes 0.6 Absolute Eosinophils 0.1 Absolute Basophils 0.0 Carbonic Acid HCO3/H2CO3 Ratio ABG pH ABG pCO2 ABG pO2 ABG HCO3 ABG O2 Saturation ABG Base Excess VBG pH VBG pCO2 VBG HCO3 VBG Base Excess FiO2 Sodium 136.9 L Potassium 6.6 H* Chloride 113 H Carbon Dioxide 13 L Anion Gap 11 BUN 72 H Creatinine 3.61 H Est GFR ( Amer) 15 L Est GFR (Non-Af Amer) 12 L Glucose 120 H Lactic Acid 1.9 Calcium 10.7 H Magnesium Total Bilirubin 0.5 AST 25 ALT 11 Alkaline Phosphatase 35 L Total Protein 7.6 Albumin 4.5 Urine Color Urine Appearance Urine pH Ur Specific [place] Urine Protein Urine Glucose (UA) Urine Ketones Urine Blood Urine Nitrite Ur Leukocyte Esterase Urine WBC (Auto) Urine RBC (Auto) Stool for White Cells 02/24/19 02/24/19 02/24/19 11:30 12:39 12:55 WBC RBC Hgb Hct MCV MCH MCHC RDW Plt Count Seg Neutrophils % Lymphocytes % Monocytes % Eosinophils % Basophils % Absolute Neutrophils Absolute Lymphocytes Absolute Monocytes Absolute Eosinophils Absolute Basophils Carbonic Acid HCO3/H2CO3 Ratio ABG pH ABG pCO2 ABG pO2 ABG HCO3 ABG O2 Saturation ABG Base Excess VBG pH 7.17 L* VBG pCO2 37.7 VBG HCO3 13.4 L VBG Base Excess -14.2 FiO2 Sodium Potassium Chloride Carbon Dioxide Anion Gap BUN Creatinine Est GFR ( Amer) Est GFR (Non-Af Amer) Glucose Lactic Acid Calcium Magnesium Total Bilirubin AST ALT Alkaline Phosphatase Total Protein Albumin Urine Color STRAW Urine Appearance CLEAR Urine pH 5.0 Ur Specific [place] 1.009 Urine Protein NEGATIVE Urine Glucose (UA) 150 H Urine Ketones NEGATIVE Urine Blood NEGATIVE Urine Nitrite NEGATIVE Ur Leukocyte Esterase NEGATIVE Urine WBC (Auto) 2 Urine RBC (Auto) 0 Stool for White Cells NO WBCs SEEN 02/24/19 02/24/19 02/25/19 15:09 20:34 02:03 WBC 6.9 RBC 2.73 L Hgb 9.0 L D Hct 26.1 L MCV 96 MCH 33.1 MCHC 34.7 RDW 13.6 Plt Count 138 L Seg Neutrophils % 57.1 Lymphocytes % 32.5 Monocytes % 7.3 Eosinophils % 2.5 Basophils % 0.6 Absolute Neutrophils 4.0 Absolute Lymphocytes 2.3 Absolute Monocytes 0.5 Absolute Eosinophils 0.2 Absolute Basophils 0.0 Carbonic Acid 0.84 L HCO3/H2CO3 Ratio 19:1 ABG pH 7.39 ABG pCO2 27.9 L ABG pO2 118.2 H ABG HCO3 16.5 L ABG O2 Saturation 98.3 H ABG Base Excess -7.2 VBG pH VBG pCO2 VBG HCO3 VBG Base Excess FiO2 2L Sodium 137.8 Potassium 6.2 H* Chloride 116 H Carbon Dioxide 13 L Anion Gap 9 BUN 64 H Creatinine 2.89 H Est GFR ( Amer) 19 L Est GFR (Non-Af Amer) 16 L Glucose 85 Lactic Acid Calcium 10.2 Magnesium Total Bilirubin AST ALT Alkaline Phosphatase Total Protein Albumin Urine Color Urine Appearance Urine pH Ur Specific [place] Urine Protein Urine Glucose (UA) Urine Ketones Urine Blood Urine Nitrite Ur Leukocyte Esterase Urine WBC (Auto) Urine RBC (Auto) Stool for White Cells 02/25/19 02/25/19 02:03 05:32 WBC RBC Hgb Hct MCV MCH MCHC RDW Plt Count Seg Neutrophils % Lymphocytes % Monocytes % Eosinophils % Basophils % Absolute Neutrophils Absolute Lymphocytes Absolute Monocytes Absolute Eosinophils Absolute Basophils Carbonic Acid 1.09 HCO3/H2CO3 Ratio 27:1 ABG pH 7.53 H ABG pCO2 36.3 ABG pO2 110.3 H ABG HCO3 29.7 H ABG O2 Saturation 98.5 H ABG Base Excess 6.7 VBG pH VBG pCO2 VBG HCO3 VBG Base Excess FiO2 2L Sodium 138.1 Potassium 4.2 D Chloride 108 H Carbon Dioxide 22 Anion Gap 8 BUN 48 H Creatinine 1.95 H Est GFR ( Amer) 31 L Est GFR (Non-Af Amer) 25 L Glucose 108 Lactic Acid Calcium 9.7 Magnesium 1.3 L Total Bilirubin AST ALT Alkaline Phosphatase Total Protein Albumin Urine Color Urine Appearance Urine pH Ur Specific [place] Urine Protein Urine Glucose (UA) Urine Ketones Urine Blood Urine Nitrite Ur Leukocyte Esterase Urine WBC (Auto) Urine RBC (Auto) Stool for White Cells 02/24/19 02/24/19 02/24/19 09:40 09:40 09:40 Creatine Kinase 44 CK-MB (CK-2) 0.64 Troponin I < 0.012 02/24/19 02/24/19 02/24/19 15:09 15:09 19:57 Creatine Kinase 42 38 CK-MB (CK-2) 0.86 Troponin I < 0.012 02/24/19 02/25/19 02/25/19 19:57 02:03 02:03 Creatine Kinase 38 CK-MB (CK-2) 0.62 0.59 Troponin I < 0.012 < 0.012 Assessment and Plan - Diagnosis (1) Acute renal failure Qualifiers: Acute renal failure type: unspecified Qualified Code(s): N17.9 - Acute kidney failure, unspecified Is this a current diagnosis for this admission?: Yes Plan: It is difficult to know the exact etiology of the acute renal failure. It is possible and most likely that it is a combination of factors. Hypovolemia with ongoing use of diuretics and potassium sparing agents likely worsened over time. At a point the metformin probably contributed as well. It is unlikely that this occurred over the course of 1 or 2 days. Unfortunately we do not have the actual blood work or EKG tracing from several days ago at the facility. If her acute kidney failure preceded the chest discomfort it could be uremic pericarditis. Regardless, all of her diuretic and NOHELIA inhibitor medications sheela l be held. She will be given IV fluids with bicarbonate. We will continue to monitor her urine output and renal function. 02/25/2019-patient came in with acute renal failure with creatinine of 3.61 i mproved to 1.95 with IV fluids. Patient's baseline creatinine is around 1.3. Acute renal failure most likely secondary to prerenal causes resolving. Renal ultrasound was requested for today. Her output is more than 2 L. Last 24 hours. urine analysis did not show any infection. (2) Hyperkalemia Is this a current diagnosis for this admission?: Yes Plan: The hyperkalemia is most likely due to the acute kidney failure with ongoing use of Spironolactone. There was also lisinopril and continue issues.. The patient was given insulin and glucose as well as bicarbonate. She received several doses of Kayexalate and I started Veltassa. I have ordered a repeat EKG for tomorrow. The peaked T waves should resolve with improved serum potassium levels. 02/25/2019-patient came in with serum potassium level of 6.6 patient is on spironolactone which is a potassium sparing diuretic and also on lisinopril dose 2 medications are discontinued patient was given Kayexalate and Veltassa potassium level came down to 4.3 today hyperkalemia due to medications and acute kidney injury is resolved. (3) Acute respiratory failure with hypoxia Is this a current diagnosis for this admission?: Yes Plan: The patient was hypoxic and required supplemental oxygen at the time of admission. We will try and maintain pulse oximetry above 90%. 02/25/2019-patient came in with low oxygen levels in the emergency room she was placed on 2 L oxygen chest x-ray was negative for pneumonia negative for COPD pulse ox is 100% on (4) Dementia Qualifiers: Dementia type: Alzheimer's disease Alzheimer's disease onset: unspecified onset Dementia behavioral disturbance: without behavioral disturbance Qualified Code(s): G30.9 - Alzheimer's disease, unspecified; F02.80 - Dementia in other diseases classified elsewhere without behavioral disturbance Is this a current diagnosis for this admission?: Yes Plan: The patient is a resident at a memory care facility. We will continue her Namenda and Aricept at this time. 02/25/2019-plan to continue namenda AND ARICEPT DURING THE HISPITAL STAY. (5) Hypotension Qualifiers: Hypotension type: hypotension due to hypovolemia Qualified Code(s): I95.89 - Other hypotension; E86.1 - Hypovolemia Is this a current diagnosis for this admission?: Yes Plan: The patient has thus far responded to IV fluids. We will try and keep her map rater than 65. She may require vasopressor therapy. Proceeding with vasopressors is in fact okay with the patient's son. 02/25/2019-presented with low blood pressures and spiranolactone and lisinopril a re d/cd . bp today is 107/55 plan to continue present tx. (6) Metabolic acidosis Is this a current diagnosis for this admission?: Yes Plan: The patient has been started on bicarbonate infusion. We will repeat blood gases. The urine pH is at the low end of normal. Adverse effects of medications compounding the renal insufficiency also likely contributed. 02/25/2019-metabolic acidosis sec to acute renal failure resolving .bicard today is 22 (7) Diabetes mellitus type 2 in nonobese Is this a current diagnosis for this admission?: Yes Plan: 02/25/2019- hemoglobin a1c is 5.6 and metformin is on hold. presently on insulin sliding scale . plan to continue present rx - Time Time Spent with patient: 15-24 minutes Smoking Cessation Education: 3 to 10 minutes Medications reviewed and adjusted accordingly: Yes Anticipated discharge: Home
[2019-02-25] MEDS: DULOXETINE HCL 30 MG CAPSULE.DR PO SCH (09:51)
[2019-02-25] MEDS: SIMETHICONE 80 MG TAB.CHEW PO SCH ×2 (09:52→17:04)
[2019-02-25] MEDS: DONEPEZIL HCL 5 MG TABLET PO SCH (09:52)
[2019-02-25] MEDS: FERROUS SULFATE 325 MG TABLET PO SCH (09:52)
[2019-02-25] MEDS: ATORVASTATIN CALCIUM 40 MG TABLET PO SCH ×2 (09:54→21:20)
--- NOTE | 2019-02-25 09:59 | RADIOLOGY REPORT (SQ) ---
EXAM DESCRIPTION: CHEST SINGLE VIEW COMPLETED DATE/TIME: 02/25/2019 6:32 am REASON FOR STUDY: Resp failure COMPARISON: Previous day. EXAM PARAMETERS: NUMBER OF VIEWS: One view. TECHNIQUE: Single frontal radiographic view of the chest acquired. RADIATION DOSE: NA LIMITATIONS: None. FINDINGS: LUNGS AND PLEURA: No opacities, masses or pneumothorax. No pleural effusion. MEDIASTINUM AND HILAR STRUCTURES: No masses. Contour normal. HEART AND VASCULAR STRUCTURES: Heart normal in size. Normal vasculature. BONES: No acute findings. HARDWARE: None in the chest. OTHER: No other significant finding. IMPRESSION: NO ACUTE RADIOGRAPHIC FINDING IN THE CHEST. TECHNICAL DOCUMENTATION: JOB ID: [id number] [employer]- All Rights Reserved Reading location - IP/workstation name: [email or web address]
[2019-02-25] MEDS ORDERED: DULOXETINE HCL 30 MG CAPSULE.DR PO SCH (10:00)
[2019-02-25] MEDS ORDERED: DONEPEZIL HCL 5 MG TABLET PO SCH (10:00)
[2019-02-25] MEDS ORDERED: MEMANTINE HCL 10 MG TABLET PO SCH (10:00)
[2019-02-25] MEDS ORDERED: MAGNESIUM SULFATE 4 GM/100 ML RTUPB IV ONE (11:00)
[2019-02-25] MEDS: TOLTERODINE TARTRATE 1 MG TABLET PO SCH ×2 (11:03→21:20)
[2019-02-25] MEDS: MEMANTINE HCL 10 MG TABLET PO SCH ×2 (11:27→21:20)
--- NOTE | 2019-02-25 12:35 | RADIOLOGY REPORT (SQ) ---
EXAM DESCRIPTION: U/S RETROPERITON (RENAL/AORTA) COMPLETED DATE/TIME: 02/25/2019 10:12 am REASON FOR STUDY: ckd COMPARISON: None. TECHNIQUE: Dynamic and static grayscale images acquired of the kidneys and bladder and recorded on P ACS. Additional selected color Doppler and spectral images recorded. LIMITATIONS: None. FINDINGS: RIGHT KIDNEY: 8.0 cm. Increased cortical echogenicity. No solid or suspicious masses. No hydronephrosis. No calcifications. LEFT KIDNEY: 10.0 cm. Increased cortical echogenicity. No solid or suspicious masses. No hydro nephrosis. No calcifications. BLADDER: Decompressed with a Fitch catheter. OTHER: No other significant finding. IMPRESSION: CHRONIC MEDICAL RENAL DISEASE. NO HYDRONEPHROSIS. TECHNICAL DOCUMENTATION: JOB ID: [id number] [employer]- All Rights Reserved Reading location - IP/workstation name: [email or web address]
--- NOTE | 2019-02-25 15:55 | XCELERA REPORT ---
[address] [address] Transthoracic Echocardiogram Report Name: BETO PAEZ Age: 73 yrs Gender: Female : 1945 Patient Status: Inpatient Patient Location: [place] [address]^A Study Date: 02/24/2019 02:46 PM Height: 61 in Weight: 190 lb BSA: 1.8 m2 Procedure: A two-dimensional transthoracic echocardiogram with color flow Doppler was performed. The study was technically difficult with many images being suboptimal in quality. Reason For Study: pericarditis History: pericarditis. Ordering Physician: GINGER MASON Performed By: Liana Moya Interpretation Summary The left ventricle is normal in size. There is normal left ventricular wall thickness. The left ventricular ejection fraction is within normal limits. LV EF is 65% Doppler measurements suggest impaired left ventricular relaxation, which is associated with grade I/IV or mild diastolic dysfunction The left ventricular wall motion is normal. There is no thrombus. Cannot assess ASD ,VSD or PFO presence. The right ventricle is not well visualized secondary to technical limitations There is no evidence of mitral valve prolapse. There is no vegetation seen on the mitral valve. There is no mitral valve stenosis. There is no mitral regurgitation noted. There is no aortic valvular vegetation. There is no aortic valve stenosis There is no LVOT obstruction. There is a trace to mild amount of aortic regurgitation There is no tricuspid stenosis. There is a trace to mild amount of tricuspid regurgitation There is mild pulmonary hypertension by echo RVSP is 33 to 38 mm of Hg , with RA mean of 5-10. There is no pulmonic valvular stenosis. There is no pulmonic valvular regurgitation. The aortic root is not well visualized. The inferior vena cava appeared normal and decreased > 50% with respiration (RAP 5-10 mmHg) There is no pericardial effusion. MMode/2D Measurements & Calculations RVDd: 3.2 cm LVIDd: 5.7 cm FS: 41.2 % Ao root diam: 3.1 cm IVSd: 0.62 cm LVIDs: 3.3 cm EDV(Teich): 157.3 ml Ao root area: 7.6 cm2 LVPWd: 0.86 cm ESV(Teich): 45.0 ml EF(Teich): 71.4 % Doppler Measurements & Calculations MV E max nilton: MV dec slope: Ao V2 max: AI max nilton: 63.2 cm/sec 408.9 cm/sec2 157.1 cm/sec 274.0 cm/sec MV A max nilton: MV dec time: Ao max PG: AI max P.0 mmHg 100.7 cm/sec 0.15 sec 9.9 mmHg AI dec slope: MV E/A: 0.63 195.2 cm/sec2 AI P1/2t: 411.1 msec LV V1 max PG: PA V2 max: TR max nilton: 7.8 mmHg 125.4 cm/sec 263.7 cm/sec LV V1 max: PA max P.3 mmHg TR max P.7 cm/sec 27.8 mmHg Left Ventricle The left ventricle is normal in size. There is normal left ventricular wall thickness. The left ventricular ejection fraction is within normal limits. LV EF is 65%. Doppler measurements suggest impaired left ventricular relaxation, which is associated with grade I/IV or mild diastolic dysfunction. The left ventricular wall motion is normal. There is no thrombus. Cannot assess ASD ,VSD or PFO presence. Right Ventricle The right ventricle is not well visualized secondary to technical limitations. Atria The right atrium is normal. The left atrial size is normal. Mitral Valve There is no evidence of mitral valve prolapse. There is no vegetation seen on the mitral valve. There is no mitral valve stenosis. There is no mitral regurgitation noted. Aortic Valve There is no aortic valvular vegetation. There is no aortic valve stenosis. There is no LVOT obstruction. There is a trace to mild amount of aortic regurgitation. Tricuspid Valve There is no tricuspid stenosis. There is a trace to mild amount of tricuspid regurgitation. There is mild pulmonary hypertension by echo. RVSP is 33 to 38 mm of Hg , with RA mean of 5-10. Pulmonic Valve There is no pulmonic valvular stenosis. There is no pulmonic valvular regurgitation. Great Vessels The aortic root is not well visualized. The inferior vena cava appeared normal and decreased > 50% with respiration (RAP 5-10 mmHg). Effusions There is no pericardial effusion. : GINGER MASON > Manjula Rogers
[2019-02-26 05:00] LABS: ABSOLUTE EOSINOPHILS # (AUTO) 0.1 10^3/uL (0.0-0.6); ABSOLUTE LYMPHOCYTES (AUTO) 1.7 10^3/uL (0.5-4.7); ABSOLUTE MONOCYTES (AUTO) 0.5 10^3/uL (0.1-1.4); ABSOLUTE NEUT (AUTO) 3.6 10^3/uL (1.7-8.2); BASOPHILS % (AUTO) 0.6 % (0-2); EOSINOPHILS % (AUTO) 2.4 % (0-6); HEMATOCRIT 27.2 % (36.0-47.0); HEMOGLOBIN 9.2 g/dL (12.0-15.5); LYMPHOCYTES % (AUTO) 28.6 % (13-45); MEAN CORPUSCULAR HEMOGLOBIN 32.5 pg (27.0-33.4); MEAN CORPUSCULAR HGB CONC 33.9 g/dL (32.0-36.0); MEAN CORPUSCULAR VOLUME 96 fl (80-97); MONOCYTES % (AUTO) 8.5 % (3-13); PLATELET COUNT 133 10^3/uL (150-450); RED BLOOD COUNT 2.83 10^6/uL (3.72-5.28); RED CELL DISTRIBUTION WIDTH 13.4 % (11.5-14.0); SEGMENTED NEUTROPHILS % (AUTO) 59.9 % (42-78); TOTAL CELLS COUNTED % (AUTO) 100 %; WHITE BLOOD COUNT 6.1 10^3/uL (4.0-10.5)
[2019-02-26] MEDS: HEPARIN SOD (PORCINE) 5,000 UNIT/ML 1 ML SYRINGE SUBCUT SCH ×3 (05:01→21:55)
[2019-02-26] MEDS: PANTOPRAZOLE SODIUM 40 MG TABLET.DR PO SCH ×2 (05:03→17:30)
[2019-02-26] MEDS: LEVOTHYROXINE SODIUM 0.075 MG TABLET PO SCH (05:03)
[2019-02-26 05:22] LABS: ALANINE AMINOTRANSFERASE 18 U/L (9-52); ALBUMIN 3.3 g/dL (3.5-5.0); ALKALINE PHOSPHATASE 34 U/L (38-126); ANION GAP 6 (5-19); ASPARTATE AMINO TRANSFERASE 20 U/L (14-36); BILIRUBIN,DIRECT 0.2 mg/dL (0.0-0.4); BILIRUBIN,TOTAL 0.3 mg/dL (0.2-1.3); BLOOD UREA NITROGEN 23 mg/dL (7-20); CALCIUM 9.9 mg/dL (8.4-10.2); CARBON DIOXIDE 26 mmol/L (22-30); CHLORIDE 105 mmol/L (98-107); GLUCOSE 99 mg/dL (75-110); POTASSIUM 4.2 mmol/L (3.6-5.0); SODIUM 137.2 mmol/L (137-145); TOTAL PROTEIN 5.7 g/dL (6.3-8.2)
[2019-02-26] MEDS: INSULIN LISPRO 100 UNIT/ML 3 ML VIAL SUBCUT SCH ×4 (08:23→21:55)
[2019-02-26] MEDS: DONEPEZIL HCL 5 MG TABLET PO SCH (10:18)
[2019-02-26] MEDS: MEMANTINE HCL 10 MG TABLET PO SCH ×2 (10:19→22:01)
[2019-02-26] MEDS: FERROUS SULFATE 325 MG TABLET PO SCH (10:19)
[2019-02-26] MEDS: TOLTERODINE TARTRATE 1 MG TABLET PO SCH ×2 (10:19→22:00)
[2019-02-26] MEDS: SIMETHICONE 80 MG TAB.CHEW PO SCH ×2 (10:19→17:30)
[2019-02-26] MEDS: DULOXETINE HCL 30 MG CAPSULE.DR PO SCH (10:19)
--- NOTE | 2019-02-26 14:52 | PDOC PROGRESS REPORT ---
Subjective Progress Note for:: 02/26/19 Subjective:: 73 year old female presented to the ED with a chief complaint of difficulty breathing and general malaise. She is a poor historian due to underlying dementia. She was found to have a normal anion gap metabolic acidosis and marginal blood pressure with hypoxia. Treatment with bicarbonate, IVF and supplemental oxygen in the ED and the patient was referred to the hospital service for admission. She was initially sent to the ICU on a bicarb infusion. Her acidosis and renal function have improved, patient was downgraded to IMCU overnight. The patient was seen this morning on rounds, she is resting comfortably in bed on room air. She is able to answer orientation questions appropriately but is otherwise a poor historian. The patient states that she "does not feel well today "because she did not like the food on her meal tray. Patient denies shortness of breath, chest pain, nausea, vomiting or diarrhea. Lungs are clear to auscultation. Palpable pulses in the upper and lower extremities. S1-S2. Nursing staff report no concerns. Reason For Visit: ACUTE RENAL FAILURE,METABOLIC ACIDOSIS, Physical Exam Vital Signs: Temp Pulse Resp BP Pulse Ox 98.2 F 81 16 94/73 L 99 02/26/19 12:15 02/26/19 12:15 02/26/19 12:15 02/26/19 12:15 02/26/19 12:15 Intake & Output 02/25/19 02/26/19 02/27/19 06:59 06:59 06:59 Intake Total 3100 1953 237 Output Total 2150 2125 300 Balance 950 -172 -63 Weight 82 kg 80.8 kg General appearance: PRESENT: morbidly obese Head exam: PRESENT: atraumatic Eye exam: PRESENT: conjunctiva pink, PERRLA Mouth exam: PRESENT: moist, tongue midline Neck exam: PRESENT: full ROM Respiratory exam: PRESENT: clear to auscultation madie, symmetrical, unlabored Cardiovascular exam: PRESENT: RRR Pulses: PRESENT: normal radial pulses, normal dorsalis pedis pul Vascular exam: PRESENT: normal capillary refill GI/Abdominal exam: PRESENT: normal bowel sounds, soft. ABSENT: distended, tenderness Rectal exam: PRESENT: deferred Extremities exam: PRESENT: full ROM. ABSENT: pedal edema Musculoskeletal exam: PRESENT: full ROM, normal inspection Neurological exam: PRESENT: alert, awake, oriented to person, oriented to place. ABSENT: oriented to time, oriented to situation Psychiatric exam: PRESENT: appropriate affect Skin exam: PRESENT: dry, intact, normal color Results Laboratory Results: 02/26/19 03:47 02/26/19 03:47 02/26/19 02/26/19 02/26/19 03:47 03:47 03:47 WBC 6.1 RBC 2.83 L Hgb 9.2 L Hct 27.2 L MCV 96 MCH 32.5 MCHC 33.9 RDW 13.4 Plt Count 133 L Seg Neutrophils % 59.9 Lymphocytes % 28.6 Monocytes % 8.5 Eosinophils % 2.4 Basophils % 0.6 Absolute Neutrophils 3.6 Absolute Lymphocytes 1.7 Absolute Monocytes 0.5 Absolute Eosinophils 0.1 Absolute Basophils 0.0 Sodium 137.2 Potassium 4.2 Chloride 105 Carbon Dioxide 26 Anion Gap 6 BUN 23 H Creatinine 1.48 H Est GFR ( Amer) 42 L Est GFR (Non-Af Amer) 35 L Glucose 99 Calcium 9.9 Magnesium 2.6 H Total Bilirubin 0.3 AST 20 ALT 18 Alkaline Phosphatase 34 L Total Protein 5.7 L Albumin 3.3 L 02/24/19 12:39 Clean Catch Midstream Urine Culture - Final Klebsiella Pneumoniae 02/24/19 02/24/19 02/24/19 09:40 09:40 09:40 Creatine Kinase 44 CK-MB (CK-2) 0.64 Troponin I < 0.012 02/24/19 02/24/19 02/24/19 15:09 15:09 19:57 Creatine Kinase 42 38 CK-MB (CK-2) 0.86 Troponin I < 0.012 02/24/19 02/25/19 02/25/19 19:57 02:03 02:03 Creatine Kinase 38 CK-MB (CK-2) 0.62 0.59 Troponin I < 0.012 < 0.012 Impressions: Renal Ultrasound 02/25/19 00:00 IMPRESSION: CHRONIC MEDICAL RENAL DISEASE. NO HYDRONEPHROSIS. Chest X-Ray 02/25/19 06:00 IMPRESSION: NO ACUTE RADIOGRAPHIC FINDING IN THE CHEST. Status: Imported from PACS Assessment and Plan - Diagnosis (1) Acute renal failure Qualifiers: Acute renal failure type: unspecified Qualified Code(s): N17.9 - Acute kidney failure, unspecified Is this a current diagnosis for this admission?: Yes Plan: Improving Creatinine 3.6-->1.4 Etiology is likely multifactorial: Hypovolemia (diuretic use), medications (metformin, diuretics) Diuretics and NOHELIA inhibitor is currently on hold Renal ultrasound completed, only shows chronic renal disease, no hydronephrosis Urinalysis negative for infection but urine culture positive for Klebsiella, likely colonization (2) Hyperkalemia Is this a current diagnosis for this admission?: Yes Plan: Resolved Potassium 4.2 Likely secondary to ongoing use of Spironolactone (3) Acute respiratory failure with hypoxia Is this a current diagnosis for this admission?: Yes Plan: Improved, patient is currently on room air CXR WNL (4) Dementia Qualifiers: Dementia type: Alzheimer's disease Alzheimer's disease onset: unspecified onset Dementia behavioral disturbance: without behavioral disturbance Qu alified Code(s): G30.9 - Alzheimer's disease, unspecified; F02.80 - Dementia in other diseases classified elsewhere without behavioral disturbance Is this a current diagnosis for this admission?: Yes Plan: Continue home dose Namenda and Aricept Patient is a resident at a memory care facility She is a poor historian (5) Hypotension Qualifiers: Hypotension type: hypotension due to hypovolemia Qualified Code(s): I95.89 - Other hypotension; E86.1 - Hypovolemia Is this a current diagnosis for this admission?: Yes Plan: Resolved, patient is now normotensive Hypotension secondary to hypovolemia Treated with IVF (6) Metabolic acidosis Is this a current diagnosis for this admission?: Yes Plan: Resolved HCO3 26 today Secondary to ARF, compounded by NOHELIA-I, metformin and diuretic medications (7) Diabetes Qualifiers: Diabetes mellitus type: type 2 Diabetes mellitus complication status: without complication Is this a current diagnosis for this admission?: Yes Plan: Accu-Cheks AC at bedtime Humalog sliding scale insulin Hgb A1c 5.6 Metformin currently on hold - Time Time Spent with patient: 15-24 minutes Medications reviewed and adjusted accordingly: Yes Anticipated discharge: Home Within: within 24 hours - Inpatient Certification Based on my medical assessment, after consideration of the patient's comorbidities, presenting symptoms, or acuity I expect that the services needed warrant INPATIENT care.: Yes I certify that my determination is in accordance with my understanding of Medicare's requirements for reasonable and necessary INPATIENT services [42 CFR 412.3e].: Yes Medical Necessity: Risk of Complication if Not Cared For in Hospital - Plan Summary Plan Summary: IF PATIENT'S CLINICAL PICTURE CONTINUES TO IMPROVE, PLAN FOR DISCHARGE HOME
[2019-02-26] MEDS: ATORVASTATIN CALCIUM 40 MG TABLET PO SCH (22:01)
[2019-02-26] MEDS: LORAZEPAM 0.5 MG TABLET PO PRN (23:37)
[2019-02-26] MEDS: HYDROCODONE/ACETAMINOPHEN 5-325 MG TABLET PO PRN (23:37)
[2019-02-27] MEDS: HEPARIN SOD (PORCINE) 5,000 UNIT/ML 1 ML SYRINGE SUBCUT SCH ×2 (05:00→13:07)
[2019-02-27] MEDS: PANTOPRAZOLE SODIUM 40 MG TABLET.DR PO SCH (05:02)
[2019-02-27] MEDS: LEVOTHYROXINE SODIUM 0.075 MG TABLET PO SCH (05:02)
[2019-02-27 05:58] LABS: ABSOLUTE EOSINOPHILS # (AUTO) 0.2 10^3/uL (0.0-0.6); ABSOLUTE LYMPHOCYTES (AUTO) 2.6 10^3/uL (0.5-4.7); ABSOLUTE MONOCYTES (AUTO) 0.6 10^3/uL (0.1-1.4); ABSOLUTE NEUT (AUTO) 3.7 10^3/uL (1.7-8.2); BASOPHILS % (AUTO) 0.4 % (0-2); EOSINOPHILS % (AUTO) 2.1 % (0-6); HEMATOCRIT 25.6 % (36.0-47.0); HEMOGLOBIN 8.9 g/dL (12.0-15.5); LYMPHOCYTES % (AUTO) 36.2 % (13-45); MEAN CORPUSCULAR HEMOGLOBIN 33.5 pg (27.0-33.4); MEAN CORPUSCULAR HGB CONC 34.8 g/dL (32.0-36.0); MEAN CORPUSCULAR VOLUME 96 fl (80-97); MONOCYTES % (AUTO) 8.6 % (3-13); PLATELET COUNT 139 10^3/uL (150-450); RED BLOOD COUNT 2.66 10^6/uL (3.72-5.28); RED CELL DISTRIBUTION WIDTH 13.3 % (11.5-14.0); SEGMENTED NEUTROPHILS % (AUTO) 52.7 % (42-78); TOTAL CELLS COUNTED % (AUTO) 100 %; WHITE BLOOD COUNT 7.1 10^3/uL (4.0-10.5)
[2019-02-27 06:15] LABS: ANION GAP 8 (5-19); BLOOD UREA NITROGEN 18 mg/dL (7-20); CALCIUM 9.6 mg/dL (8.4-10.2); CARBON DIOXIDE 26 mmol/L (22-30); CHLORIDE 104 mmol/L (98-107); GLUCOSE 90 mg/dL (75-110); POTASSIUM 4.2 mmol/L (3.6-5.0)
[2019-02-27] MEDS: INSULIN LISPRO 100 UNIT/ML 3 ML VIAL SUBCUT SCH ×2 (08:24→13:07)
[2019-02-27] MEDS: DONEPEZIL HCL 5 MG TABLET PO SCH (09:54)
[2019-02-27] MEDS: FERROUS SULFATE 325 MG TABLET PO SCH (09:54)
[2019-02-27] MEDS: TOLTERODINE TARTRATE 1 MG TABLET PO SCH (09:54)
[2019-02-27] MEDS: SIMETHICONE 80 MG TAB.CHEW PO SCH (09:54)
[2019-02-27] MEDS: DULOXETINE HCL 30 MG CAPSULE.DR PO SCH (09:54)
[2019-02-27] MEDS: MEMANTINE HCL 10 MG TABLET PO SCH (09:54)
--- NOTE | 2019-02-27 10:25 | PDOC TRANSFER SUMMARY ---
General - Admit/Disc Date/PCP Admission Date/Primary Care Provider: 02/24/19 12:36 Discharge Date: 02/27/19 - Discharge Diagnosis (1) Acute renal failure Is this a current diagnosis for this admission?: Yes (2) Hyperkalemia Is this a current diagnosis for this admission?: Yes (3) Acute respiratory failure with hypoxia Is this a current diagnosis for this admission?: Yes (4) Dementia Is this a current diagnosis for this admission?: Yes (5) Hypotension Is this a current diagnosis for this admission?: Yes (6) Metabolic acidosis Is this a current diagnosis for this admission?: Yes (7) Diabetes Is this a current diagnosis for this admission?: Yes - Additional Information Resuscitation Status: Do Not Resuscitate Discharge Diet: As Tolerated Discharge Activity: Activity As Tolerated Prescriptions: Metformin HCl [Metformin HCl ER] 750 mg PO BID #60 tab.er.24h Spironolactone [Aldactone 25 mg Tablet] 25 mg PO BID #60 Tolterodine Tartrate [Detrol 1 mg Tablet] 1 mg PO Q12 #60 tablet Home Medications: Albuterol Sulfate [Proair HFA Inhalation Aerosol 8.5 gm MDI] 2 puff IH Q4HP PRN 02/24/19 Atorvastatin Calcium [Lipitor 40 mg Tablet] 40 mg PO QHS 02/24/19 Dexlansoprazole [Dexilant 60 mg Capsule] 60 mg PO BID 02/24/19 Donepezil HCl [Aricept] 10 mg PO DAILY 02/24/19 Duloxetine HCl [Cymbalta] 60 mg PO DAILY 02/24/19 Ferrous Sulfate [Feosol 325 mg Tablet] 325 mg PO DAILY 02/24/19 Fluticasone Propionate [Flonase Nasal Brinnon 50 Mcg/Brinnon 16 gm] 1 spray NASL DAILYP PRN 02/24/19 Furosemide [Lasix 40 mg Tablet] 40 mg PO DAILY 02/24/19 Guaifenesin [Robafen] 10 ml PO Q6HP PRN 02/24/19 Hydrocodone/Acetaminophen [[place] 7.5-325 mg Tablet] 1 tab PO Q12 02/24/19 Levothyroxine Sodium [Synthroid 0.075 mg Tablet] 0.075 mg PO Q6AM 02/24/19 Lisinopril [Prinivil 40 mg Tablet] 40 mg PO DAILY 02/24/19 Mag Hydrox/Al Hydrox/Simeth [Maalox Plus Susp 30 Udcup] 30 ml PO Q4HP PRN 02/24/19 Memantine HCl [Namenda 10 mg Tablet] 10 mg PO BID 02/24/19 Ranitidine HCl [Zantac 150 mg Tablet] 150 mg PO BID 02/24/19 Simethicone [Mylicon 80 mg Chewable Tablet] 80 mg PO BID 02/24/19 Duloxetine HCl [Cymbalta 30 mg Capsule.] 60 mg PO DAILY capsule. 02/27/19 Metformin HCl [Metformin HCl ER] 750 mg PO BID #60 tab.er.24h 02/27/19 Spironolactone [Aldactone 25 mg Tablet] 25 mg PO BID #60 02/27/19 Tolterodine Tartrate [Detrol 1 mg Tablet] 1 mg PO Q12 #60 tablet 02/27/19 History of Present Illness Admission Date/PCP: 02/24/19 12:36 Patient complains of: LETHARGY. GENERAL MALAISE History of Present Illness: BETO PAEZ is a 73 year old female who evidently reported chest pain ea rlier in the week at her primary care residential facility. An EKG was done. The tracing is not available but the report is. The report noted peaked T waves as well as concave ST elevation 0.5 mm in the inferior leads. There was a question of ischemia versus pericarditis. The patient was also reported to have a positive troponin at the time. Patient presents to the emergency department for further evaluation. Her most prominent symptom is difficulty breathing and not feeling well in general. She is a poor historian due to underlying dementia. She was found to have a normal anion gap metabolic acidosis and marginal blood pressure with hypoxia. Treatment with bicarbonate, volume and oxygen therapy were initiated in the emergency department and the patient was referred to the hospital service for admission. Hospital Course Hospital Course: 73 year old female presented to the ED with a chief complaint of difficulty breathing and general malaise. She is a poor historian due to underlying dementia. She was found to have a normal anion gap metabolic acidosis and marginal blood pressure with hypoxia. Treatment with bicarbonate, IVF and supplemental oxygen in the ED and the patient was referred to the hospital service for admission. She was initially sent to the ICU on a bicarb infusion. Her acidosis and renal function have improved, patient was downgraded to IMCU on hospital day #3. It is difficult to know the exact etiology of the acute renal failure. It is most likely that it is a combination of factors: hypovolemia with ongoing use of diuretics and potassium sparing (spironolactone) agents likely worsened renal function over time. It is unlikely that this occurred over the course of 1 or 2 days. The metformin probably contributed as well. Evidently the patient reported chest pain earlier in the week at her primary care residential facility. An EKG was done. The tracing is not available to us but the report is. The report noted peaked T waves as well as concave ST elevation 0.5 mm in the inferior leads. There was a question of ischemia versus pericarditis. If her acute kidney failure preceded the chest discomfort it could be uremic pericarditis. Regardless, her Spironolactone dose was decreased from 50 mg BID to 25mg BID. Additionally, metformin was decreased from 1000mg BID to 750mg BID. Strongly recommend follow-up with PCP this week to evaluate patient's tolerance of new medication dosing. For any further information regarding this patient's hospitalization, please refer to the EMR. Physical Exam Vital Signs: Temp Pulse Resp BP Pulse Ox 98.0 F 80 18 118/48 L 97 02/27/19 08:12 02/27/19 08:12 02/27/19 08:12 02/27/19 08:12 02/27/19 08:12 Intake & Output 02/26/19 02/27/19 02/28/19 06:59 06:59 06:59 Intake Total 1953 699 Output Total 2356 850 Balance -172 -151 Weight 80.8 kg 80.6 kg General appearance: PRESENT: morbidly obese Eye exam: PRESENT: PERRLA Mouth exam: PRESENT: moist, tongue midline Teeth exam: PRESENT: edentulous Neck exam: PRESENT: full ROM Respiratory exam: PRESENT: clear to auscultation madie, symmetrical, unlabored Cardiovascular exam: PRESENT: RRR Pulses: PRESENT: normal radial pulses, normal dorsalis pedis pul Vascular exam: PRESENT: normal capillary refill GI/Abdominal exam: PRESENT: soft. ABSENT: distended, tenderness Rectal exam: PRESENT: deferred Extremities exam: PRESENT: full ROM, pedal edema Musculoskeletal exam: PRESENT: ambulatory - WITH ASSISTANCE, full ROM, normal inspection. ABSENT: deformity Neurological exam: PRESENT: alert, awake, oriented to person, oriented to place, oriented to time, oriented to situation Psychiatric exam: PRESENT: appropriate affect Skin exam: PRESENT: dry, intact Results Laboratory Results: 02/27/19 04:58 02/27/19 04:58 02/27/19 02/27/19 04:58 04:58 WBC 7.1 RBC 2.66 L Hgb 8.9 L Hct 25.6 L MCV 96 MCH 33.5 H MCHC 34.8 RDW 13.3 Plt Count 139 L Seg Neutrophils % 52.7 Lymphocytes % 36.2 Monocytes % 8.6 Eosinophils % 2.1 Basophils % 0.4 Absolute Neutrophils 3.7 Absolute Lymphocytes 2.6 Absolute Monocytes 0.6 Absolute Eosinophils 0.2 Absolute Basophils 0.0 Sodium 138.0 Potassium 4.2 Chloride 104 Carbon Dioxide 26 Anion Gap 8 BUN 18 Creatinine 1.52 H Est GFR ( Amer) 41 L Est GFR (Non-Af Amer) 34 L Glucose 90 Calcium 9.6 Magnesium 2.0 02/24/19 12:55 Stool - Stool - Final 02/24/19 12:55 Stool - Stool Stool Culture - Final NO SALMONELLA, SHIGELLA, CAMPYLOBACTER, OR E.COLI 0157 RECOVERED. NEGATIVE FOR SHIGA TOXINS 1&2. 02/24/19 12:39 Clean Catch Midstream Urine Culture - Final Klebsiella Pneumoniae 02/24/19 02/24/19 02/24/19 09:40 09:40 09:40 Creatine Kinase 44 CK-MB (CK-2) 0.64 Troponin I < 0.012 02/24/19 02/24/19 02/24/19 15:09 15:09 19:57 Creatine Kinase 42 38 CK-MB (CK-2) 0.86 Troponin I < 0.012 02/24/19 02/25/19 02/25/19 19:57 02:03 02:03 Creatine Kinase 38 CK-MB (CK-2) 0.62 0.59 Troponin I < 0.012 < 0.012 Impressions: Renal Ultrasound 02/25/19 00:00 IMPRESSION: CHRONIC MEDICAL RENAL DISEASE. NO HYDRONEPHROSIS. Chest X-Ray 02/25/19 06:00 IMPRESSION: NO ACUTE RADIOGRAPHIC FINDING IN THE CHEST. Status: Imported from PACS Transfer Plan - Disposition Transfer Plan: SEND TO [facility] - Time Spent with Patient Time spent with patient: Greater than 30 Minutes Qualifiers - * PATIENT BEING DISCHARGED WITH ANY OF THE FOLLOWING DIAGNOSIS: No
[2019-02-27 12:06] VITALS: BP 98/46
== END 2019-02-27 14:15 | DRG 682 ==
LOC: ER 09:58 → EH 12:36 → ICU 17:45 → 3N 02-25 17:53
PROVIDERS: ADMIT Hospitalist; ATTEND Hospitalist
PROC: 3E0F73Z Introduction of Anti-inflammatory into Respiratory Tract, Via Natural or Artificial Opening (ICD-10-PCS; principal; 2019-02-25)
DX: N17.9 Acute kidney failure, unspecified (principal); J96.01 Acute respiratory failure with hypoxia; E87.2 Acidosis; E87.5 Hyperkalemia; Z66 Do not resuscitate; F03.90 Unspecified dementia, unspecified severity, without behavioral disturbance, psychotic disturbance, mood disturbance, and anxiety; E11.9 Type 2 diabetes mellitus without complications; I95.9 Hypotension, unspecified; E03.9 Hypothyroidism, unspecified; F32.9 Major depressive disorder, single episode, unspecified; D64.9 Anemia, unspecified; I95.89 Other hypotension; G30.9 Alzheimer's disease, unspecified; F02.80 Dementia in other diseases classified elsewhere, unspecified severity, without behavioral disturbance, psychotic disturbance, mood disturbance, and anxiety; K21.9 Gastro-esophageal reflux disease without esophagitis; I10 Essential (primary) hypertension; B96.1 Klebsiella pneumoniae [K. pneumoniae] as the cause of diseases classified elsewhere; E78.5 Hyperlipidemia, unspecified; Z79.899 Other long term (current) drug therapy; Z90.710 Acquired absence of both cervix and uterus; Z82.49 Family history of ischemic heart disease and other diseases of the circulatory system; Z83.3 Family history of diabetes mellitus; Z80.9 Family history of malignant neoplasm, unspecified
CPT/HCPCS: 36415; 71045; 76770; 80048; 80053; 81001; 82550; 82553; 82803; 82962; 83036; 83605; 83735; 84484; 85025; 85610; 87040; 87045; 87086; 87088; 87186; 87205; 89055; 93005; 93010; 93306; J0610; J1644; J1815; J3475; J3490; J7030; J7060

== ENCOUNTER 2019-04-23 16:51 | Emergency (ER) | payer MEDICARE, OTHER ==
[2019-04-23 17:24] LABS: ABSOLUTE EOSINOPHILS # (AUTO) 0.2 10^3/uL (0.0-0.6); ABSOLUTE LYMPHOCYTES (AUTO) 1.2 10^3/uL (0.5-4.7); ABSOLUTE MONOCYTES (AUTO) 0.6 10^3/uL (0.1-1.4); ABSOLUTE NEUT (AUTO) 2.9 10^3/uL (1.7-8.2); BASOPHILS % (AUTO) 0.4 % (0-2); EOSINOPHILS % (AUTO) 4.1 % (0-6); HEMATOCRIT 26.2 % (36.0-47.0); HEMOGLOBIN 9.1 g/dL (12.0-15.5); LYMPHOCYTES % (AUTO) 23.9 % (13-45); MEAN CORPUSCULAR HGB CONC 34.8 g/dL (32.0-36.0); MEAN CORPUSCULAR VOLUME 95 fl (80-97); MONOCYTES % (AUTO) 11.9 % (3-13); PLATELET COUNT 191 10^3/uL (150-450); RED BLOOD COUNT 2.76 10^6/uL (3.72-5.28); RED CELL DISTRIBUTION WIDTH 13.2 % (11.5-14.0); SEGMENTED NEUTROPHILS % (AUTO) 59.7 % (42-78); TOTAL CELLS COUNTED % (AUTO) 100 %; WHITE BLOOD COUNT 4.9 10^3/uL (4.0-10.5)
[2019-04-23 17:46] LABS: ALANINE AMINOTRANSFERASE 43 U/L (9-52); ALBUMIN 3.5 g/dL (3.5-5.0); ALKALINE PHOSPHATASE 44 U/L (38-126); ANION GAP 12 (5-19); ASPARTATE AMINO TRANSFERASE 38 U/L (14-36); BILIRUBIN,DIRECT 0.3 mg/dL (0.0-0.4); BILIRUBIN,TOTAL 0.4 mg/dL (0.2-1.3); BLOOD UREA NITROGEN 20 mg/dL (7-20); CALCIUM 8.5 mg/dL (8.4-10.2); CARBON DIOXIDE 27 mmol/L (22-30); CHLORIDE 102 mmol/L (98-107); GLUCOSE 80 mg/dL (75-110); LIPASE 184.9 U/L (23-300); TOTAL PROTEIN 6.2 g/dL (6.3-8.2)
[2019-04-23 17:52] LABS: POTASSIUM 2.8 mmol/L (3.6-5.0)
[2019-04-23 18:03] LABS: APPEARANCE,URINE CLOUDY; BILIRUBIN,URINE NEGATIVE (NEGATIVE); COLOR,URINE YELLOW; GLUCOSE, URINE NEGATIVE (NEGATIVE); KETONES,URINE NEGATIVE (NEGATIVE); LEUKOCYTE ESTERASE,URINE MODERATE (NEGATIVE); NITRITE,URINE NEGATIVE (NEGATIVE); PROTEIN,URINE NEGATIVE (NEGATIVE); URINE SPECIFIC GRAVITY 1.008; UROBILINOGEN,URINE NEGATIVE mg/dL (<2.0)
[2019-04-23] MEDS ORDERED: POTASSI CL 20 MEQ/50 ML RIDER 20 MEQ/50 ML RTUPB IV ONE (18:23)
[2019-04-23] MEDS: MAGNESIUM SULFATE/D5W 1 GM/100 ML RTUPB IV SCH ×2 (19:09→20:39)
[2019-04-23] MEDS ORDERED: NORMAL SALINE 1000 ML 500 ML IV ONE (19:48)
[2019-04-23] MEDS ORDERED: POTASSIUM CHLORIDE 10 MEQ CAPSULE.ER PO ONE (21:33)
--- NOTE | 2019-04-23 21:35 | ER Document Report ---
ED General - General Chief Complaint: Abdominal Pain Stated Complaint: ABDOMINAL PAIN Time Seen by Provider: 04/23/19 18:22 Primary Care Provider: MICHELLE PAEZ PA [Primary Care Provider] - Follow up as needed Cannot obtain history due to: Dementia Notes: Patient is a 74-year-old female with past medical history of dementia, hypothyroidism, presents with concerns of approximately 1 week of diarrhea and abdominal cramping. Patient states that her symptoms started gradually, been worsening since onset. Nothing seems to improve her symptoms, seems to be worsened by eating. Describes her abdominal pain as being intermittent, cramping, mild to moderate discomfort that generally is present prior to bowel movements but is otherwise absent. Denies any abdominal pain at the time my as sessment. Denies fever or constitutional symptoms. Denies history of similar symptoms in the past. Does reside in a nursing facility. Has not seen her general physician regarding today's concerns. TRAVEL OUTSIDE OF THE [place] IN LAST 30 DAYS: No - Related Data Allergies/Adverse Reactions: No Known Allergies Allergy (Unverified 12/27/18 11:15) Past Medical History - General Information source: Patient - Social History Smoking Status: Former Smoker Frequency of alcohol use: None Drug Abuse: None Lives with: [facility] Family History: CAD, DM, Hypertension, Malignancy Patient has suicidal ideation: No Patient has homicidal ideation: No - Past Medical History Cardiac Medical History: Denies: Hx Atrial Fibrillation, Hx Congestive Heart Failure, Hx Heart Attack Pulmonary Medical History: Denies: Hx Asthma, Hx Bronchitis, Hx COPD Endocrine Medical History: Reports: Hx Diabetes Mellitus Type 2, Hx Hypothyroidism Renal/ Medical History: Denies: Hx End Stage Renal Disease, Hx Peritoneal Dialysis GI Medical History: Denies: Hx Cirrhosis, Hx Hepatitis Musculoskeletal Medical History: Denies Hx Fibromyalgia, Denies Hx Gout Skin Medical History: Denies Hx Eczema, Denies Hx Psoriasis Psychiatric Medical History: Reports: Hx Dementia, Hx Depression Infectious Medical History: Denies: Hx Hepatitis Past Surgical History: Reports: Hx Hysterectomy, Hx Orthopedic Surgery - bilateral knees Review of Systems - Review of Systems Notes: Constitutional: Negative for fever. HENT: Negative for sore throat. Eyes: Negative for visual changes. Cardiovascular: Negative for chest pain. Respiratory: Negative for shortness of breath. Gastrointestinal: Positive abdominal cramping, nausea and diarrhea Genitourinary: Negative for dysuria. Musculoskeletal: Negative for back pain. Skin: Negative for rash. Neurological: Negative for headaches, weakness or numbness. 10 point ROS negative except as marked above and in HPI. Physical Exam - Vital signs Vitals: Temp Pulse Resp BP Pulse Ox 98.0 F 71 16 91/46 L 99 04/23/19 16:51 04/23/19 16:51 04/23/19 16:51 04/23/19 16:51 04/23/19 16:51 Interpretation: Hypotensive Notes: PHYSICAL EXAMINATION: GENERAL: Well-appearing, well-nourished and in no acute distress. HEAD: Atraumatic, normocephalic. EYES: Pupils equal round and reactive to light, extraocular movements intact, sclera anicteric, conjunctiva are normal. ENT: nares patent, oropharynx clear without exudates. Moderately dry mucous membranes. NECK: Normal range of motion, supple without lymphadenopathy LUNGS: Breath sounds clear to auscultation bilaterally and equal. No wheezes rales or rhonchi. HEART: Regular rate and rhythm without murmurs ABDOMEN: Soft, nontender, normoactive bowel sounds. No guarding, no rebound. No masses appreciated. EXTREMITIES: Normal range of motion, no pitting or edema. No cyanosis. NEUROLOGICAL: No focal neurological deficits. Moves all extremities spontaneously and on command. PSYCH: Oriented to person and place SKIN: Warm, Dry, normal turgor, no rashes or lesions noted. Course - Re-evaluation Re-evalutation: 04/23/19 21:37 Patient presents with concerns of several days of diarrhea with intermittent abdominal cramping when she has the diarrheal bowel movements. On exam there is are not no focal findings on examination other than dry mucous membranes. Patimarj nt denies any abdominal pain at the time of my assessment and has no focal abdominal tenderness. Her labs are notable only for hypokalemia 2.8 and the patient actually has a history of hyperkalemia. She was given potassium magnesium repletion here in the emergency department through IV and oral route. She has been instructed that she will need a recheck of her potassium level within 3 days and this has been included in her discharge instructions for the facility where she resides. The patient tolerated oral intake here in the emergency room with any difficulty. Patient was mildly hypotensive for EMS at 91 on 55 which did resolve after fluid resuscitation. Just prior to discharge patient was able to provide a stool sample. Results are pending at this time will discharge with return precautions and follow-up recommendations. Verbal discharge instructions given a the bedside and opportunity for questions given. Medication warnings reviewed. Patient is in agreement with this plan and has verbalized understanding of return precautions and the need for primary care follow-up in the next 24-72 hours. 04/24/19 01:50 The patient's stool sample have come back positive for C. difficile colitis. A prescription for oral vancomycin was sent with a transport crew back to the patient's facility as well as with proof of diagnosis. We will also call to the patient's facility to verify that they have received this prescription and the diagnosis. - Vital Signs Vital signs: Temp Pulse Resp BP Pulse Ox 98.0 F 71 22 H 112/95 H 96 04/23/19 16:51 04/23/19 16:51 04/23/19 22:30 04/23/19 22:31 04/23/19 22:30 - Laboratory Result Diagrams: 04/23/19 17:06 04/23/19 17:06 Laboratory results interpreted by me: 04/23/19 04/23/19 04/23/19 17:06 17:06 17:06 RBC 2.76 L Hgb 9.1 L Hct 26.2 L Potassium 2.8 L* Creatinine 1.53 H Est GFR ( Amer) 40 L Est GFR (Non-Af Amer) 33 L Magnesium 1.5 L AST 38 H Total Protein 6.2 L Ur Leukocyte Esterase 04/23/19 17:25 RBC Hgb Hct Potassium Creatinine Est GFR ( Amer) Est GFR (Non-Af Amer) Magnesium AST Total Protein Ur Leukocyte Esterase MODERATE H - EKG Interpretation by Me Additional EKG results interpreted by me: 04/23/19 21:38 Sinus rhythm, rate 69. No ST elevations or depressions. QTC is 455. Discharge - Discharge Clinical Impression: Hypokalemia, C. difficile colitis Diarrhea Qualifiers: Diarrhea type: presumed infectious Qualified Code(s): R19.7 - Diarrhea, unspecified Dementia Qualifiers: Dementia type: unspecified type Dementia behavioral disturbance: without behavioral disturbance Qualified Code(s): F03.90 - Unspecified dementia without behavioral disturbance Condition: Stable Disposition: HOME-SNF (ED ONLY) Additional Instructions: Your potassium level was low today. You have been given potassium repletion he re in the emergency department and your primary care doctor needs to recheck your potassium level within the next 72 hours. Please continue taking all medications as prescribed. Your other labs are otherwise unchanged from your most recent hospitalization discharge. Return if you have worsening diarrhea, persistent vomiting, fever, pass out, or have any other symptoms that are worrisome to you. Prescriptions: Vancomycin HCl [Vancocin HCl] 125 mg PO Q6 #40 capsule Referrals: MICHELLE PAEZ PA [Primary Care Provider] - Follow up as needed
[2019-04-23 22:37] VITALS: BP 112/95
--- NOTE | 2019-04-23 23:31 | EKG REPORT ---
SEVERITY:- BORDERLINE ECG - SINUS RHYTHM CONSIDER ANTERIOR INFARCT : Confirmed by: Manjula Rogers MD 23-Apr-2019 23:30:54
[2019-04-24] MEDS ORDERED: VANCOMYCIN HCL INJ 500 MG VIAL PO ONE
== END 2019-04-23 22:45 ==
LOC: ER 16:51
DX: A04.72 Enterocolitis due to Clostridium difficile, not specified as recurrent (principal); E87.6 Hypokalemia; R10.9 Unspecified abdominal pain; R11.0 Nausea; E11.9 Type 2 diabetes mellitus without complications; F03.90 Unspecified dementia, unspecified severity, without behavioral disturbance, psychotic disturbance, mood disturbance, and anxiety; Z87.891 Personal history of nicotine dependence
CPT/HCPCS: 93005; 99284; 96361; 96365; 96366; 96368; 36415; 87045; 87086; 87205; 83690; 83735; 85025; 87088; 80053; 81001; 87186; 87493; 93010; J3475; J3480; J7030; A9270

== ENCOUNTER 2019-05-28 13:03 | Emergency (ER) | payer MEDICARE, OTHER ==
--- NOTE | 2019-05-28 13:38 | ER Document Report ---
ED General - General Chief Complaint: Skin Problem Stated Complaint: ELBOW PAIN Time Seen by Provider: 05/28/19 13:37 Primary Care Provider: MICHELLE PAEZ PA [PHYSICIAN CHIEF PASSENGER [employer] STEWARD/STEWARDESS] - Follow up as needed TRAVEL OUTSIDE OF THE [place] IN LAST 30 DAYS: No - HPI Patient complains to provider of: Left elbow pain Notes: Demented elderly female presents from group home. DNI DNR present on chart. Patient has no recollection of when this redness started on the posterior aspect of her left arm. Is located mainly over her forearm and extends down to her e lbow. Mild purulent discharge noted by staff but just a scab present here in the emergency department. Non-reliable review of systems. - Related Data Allergies/Adverse Reactions: No Known Allergies Allergy (Unverified 12/27/18 11:15) Past Medical History - Social History Smoking Status: Never Smoker Family History: CAD, DM, Hypertension, Malignancy Patient has suicidal ideation: No Patient has homicidal ideation: No - Past Medical History Cardiac Medical History: Denies: Hx Atrial Fibrillation, Hx Congestive Heart Failure, Hx Heart Attack Pulmonary Medical History: Denies: Hx Asthma, Hx Bronchitis, Hx COPD Endocrine Medical History: Reports: Hx Diabetes Mellitus Type 2, Hx Hypothyroidism Renal/ Medical History: Denies: Hx End Stage Renal Disease, Hx Peritoneal Dialysis GI Medical History: Denies: Hx Cirrhosis, Hx Hepatitis Musculoskeletal Medical History: Denies Hx Fibromyalgia, Denies Hx Gout Skin Medical History: Denies Hx Eczema, Denies Hx Psoriasis Psychiatric Medical History: Reports: Hx Dementia, Hx Depression Infectious Medical History: Denies: Hx Hepatitis Past Surgical History: Reports: Hx Hysterectomy, Hx Orthopedic Surgery - bilateral knees Review of Systems - Review of Systems -: Yes ROS unobtainable due to patient's medical condition Physical Exam - Vital signs Vitals: Temp Pulse Resp BP Pulse Ox 98.3 F 78 14 114/60 100 05/28/19 13:18 05/28/19 13:18 05/28/19 13:18 05/28/19 13:18 05/28/19 13:18 - Notes Notes: PHYSICAL EXAMINATION: GENERAL: Well-appearing, well-nourished and in no acute distress. HEAD: Atraumatic, normocephalic. EYES: Pupils equal round and reactive to light, extraocular movements intact, sclera anicteric, conjunctiva are normal. ENT: nares patent, oropharynx clear without exudates. Moist mucous membranes. NECK: Normal range of motion, supple without lymphadenopathy LUNGS: Breath sounds clear to auscultation bilaterally and equal. No wheezes rales or rhonchi. HEART: Regular rate and rhythm without murmurs ABDOMEN: Soft, nontender, normoactive bowel sounds. No guarding, no rebound. No masses appreciated. EXTREMITIES: Normal range of motion, no pitting or edema. No cyanosis. NEUROLOGICAL: Cranial nerves grossly intact. Normal speech, normal gait. Normal sensory and motor exams. PSYCH: Normal mood, normal affect. SKIN: Erythema over the dorsal aspect of forearm back to left elbow. Extends approximately 3 inches x 6 6 inches no fluctuance noted Course - Re-evaluation Re-evalutation: 05/28/19 15:34 Afebrile patient presents with group home with cellulitis in left upper extremity. Patient is stable vital signs within normal limits. Patient's lab work shows mild leukocytosis. Patient given ample fluid resuscitation initial dose of antibiotic here in the department. Patient will be discharged home improved. Strict return precautions of any acute change please return - Vital Signs Vital signs: Temp Pulse Resp BP Pulse Ox 98.3 F 78 14 114/60 100 05/28/19 13:18 05/28/19 13:18 05/28/19 13:18 05/28/19 13:18 05/28/19 13:18 - Laboratory Result Diagrams: 05/28/19 13:57 05/28/19 13:57 Laboratory results interpreted by me: 05/28/19 05/28/19 13:57 13:57 WBC 15.2 H RBC 3.16 L Hgb 9.8 L Hct 28.9 L Seg Neutrophils % 85.2 H Lymphocytes % 7.8 L Absolute Neutrophils 13.0 H Potassium 2.9 L* Chloride 95 L Carbon Dioxide 32 H BUN 21 H Creatinine 1.40 H Est GFR ( Amer) 45 L Est GFR (Non-Af Amer) 37 L Discharge - Discharge Clinical Impression: Cellulitis Qualifiers: Site of cellulitis: extremity Site of cellulitis of extremity: upper extremity Laterality: left Qualified Code(s): L03.114 - Cellulitis of left upper limb Condition: Stable Disposition: HOME, SELF-CARE Prescriptions: Cefdinir 300 mg PO BID #14 capsule Referrals: MICHELLE PAEZ PA [PHYSICIAN CHIEF PASSENGER [employer] STEWARD/STEWARDESS] - Follow up as needed
[2019-05-28] MEDS ORDERED: CEFTRIAXONE 1 GM/D5W RTU 1 GM/50 ML RTUPB IV ONE (13:45)
[2019-05-28] MEDS ORDERED: NORMAL SALINE 1000 ML 1,000 ML IV ONE (13:45)
[2019-05-28 14:28] LABS: ABSOLUTE BASOPHILS # (AUTO) 0.1 10^3/uL (0.0-0.2); ABSOLUTE EOSINOPHILS # (AUTO) 0.1 10^3/uL (0.0-0.6); ABSOLUTE LYMPHOCYTES (AUTO) 1.2 10^3/uL (0.5-4.7); ABSOLUTE MONOCYTES (AUTO) 0.9 10^3/uL (0.1-1.4); ANION GAP 11 (5-19); BASOPHILS % (AUTO) 0.5 % (0-2); BLOOD UREA NITROGEN 21 mg/dL (7-20); CALCIUM 9.2 mg/dL (8.4-10.2); CARBON DIOXIDE 32 mmol/L (22-30); CHLORIDE 95 mmol/L (98-107); EOSINOPHILS % (AUTO) 0.5 % (0-6); GLUCOSE 105 mg/dL (75-110); HEMATOCRIT 28.9 % (36.0-47.0); HEMOGLOBIN 9.8 g/dL (12.0-15.5); LYMPHOCYTES % (AUTO) 7.8 % (13-45); MEAN CORPUSCULAR HEMOGLOBIN 30.9 pg (27.0-33.4); MEAN CORPUSCULAR HGB CONC 33.8 g/dL (32.0-36.0); MEAN CORPUSCULAR VOLUME 92 fl (80-97); PLATELET COUNT 228 10^3/uL (150-450); RED BLOOD COUNT 3.16 10^6/uL (3.72-5.28); RED CELL DISTRIBUTION WIDTH 12.8 % (11.5-14.0); SEGMENTED NEUTROPHILS % (AUTO) 85.2 % (42-78); SODIUM 138.2 mmol/L (137-145); TOTAL CELLS COUNTED % (AUTO) 100 %; WHITE BLOOD COUNT 15.2 10^3/uL (4.0-10.5)
[2019-05-28 14:30] LABS: POTASSIUM 2.9 mmol/L (3.6-5.0)
[2019-05-28] MEDS ORDERED: POTASSIUM CHLORIDE 20 MEQ PACKET PO ONE (15:28)
[2019-05-28 16:35] VITALS: BP 124/66
== END 2019-05-28 17:05 | disposition home or self-care (01) ==
LOC: ER 13:03
DX: L03.114 Cellulitis of left upper limb (principal); M25.522 Pain in left elbow; M79.602 Pain in left arm
CPT/HCPCS: 99284; 96365; 36415; 85025; 80048; J7030; J0696; J3490

== ENCOUNTER 2020-04-18 15:33 | Emergency (ER) | payer MEDICARE, OTHER ==
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
[2020-04-18] MEDS ORDERED: LIDOCAINE 1%/EPINEPHRINE INJ 20 ML VIAL INJ ONE (19:07)
[2020-04-18] MEDS ORDERED: AMOXICILLIN TR/POT CLAVULANATE 875-125 MG TAB PO ONE (19:08)
[2020-04-18] MEDS ORDERED: DIPH/PERTUSS(ACELL)/TETANUS VAC/PF 0.5 ML SYR (>=10YO) IM ONE (21:10)
[2020-04-18 22:37] VITALS: BP 175/68
== END 2020-04-18 22:00 | disposition home or self-care (01) ==
LOC: ER 15:33
DX: S51.852A Open bite of left forearm, initial encounter (principal); W50.3XXA Accidental bite by another person, initial encounter; F03.90 Unspecified dementia, unspecified severity, without behavioral disturbance, psychotic disturbance, mood disturbance, and anxiety; E11.9 Type 2 diabetes mellitus without complications; I10 Essential (primary) hypertension; K21.9 Gastro-esophageal reflux disease without esophagitis; I50.9 Heart failure, unspecified; E03.9 Hypothyroidism, unspecified; Z79.899 Other long term (current) drug therapy
CPT/HCPCS: 99283; 90471; 73090; 90715; 12002; J3490 ×2

== ENCOUNTER 2020-07-24 21:03 | Emergency (ER) | payer MEDICARE ==
[2020-07-24 21:33] VITALS: BP 174/77
[2020-07-24] MEDS ORDERED: ACETAMINOPHEN 325 MG TABLET PO ONE (22:06)
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
--- NOTE | 2020-07-24 22:51 | RADIOLOGY REPORT (SQ) ---
EXAM DESCRIPTION: XR SHOULDER 2 OR MORE VIEWS COMPLETED DATE/TME: 07/24/2020 22:05 CLINICAL HISTORY: 75 years, Female, fall, R shoulder pain COMPARISON: None. NUMBER OF VIEWS: 2 TECHNIQUE: 2 views right shoulder LIMITATIONS: None. FINDINGS: Comminuted fracture deformity of the proximal humeral head and neck. No dislocation. Osteopenia. Degenerative change IMPRESSION: Comminuted proximal humeral head/neck fracture copyright 2010 [employer]- All Rights Reserved
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
== END 2020-07-24 23:05 | disposition home or self-care (01) ==
LOC: ER 21:03
DX: S42.291A Other displaced fracture of upper end of right humerus, initial encounter for closed fracture (principal); M25.511 Pain in right shoulder; W03.XXXA Other fall on same level due to collision with another person, initial encounter; Y92.199 Unspecified place in other specified residential institution as the place of occurrence of the external cause; G30.9 Alzheimer's disease, unspecified; F02.80 Dementia in other diseases classified elsewhere, unspecified severity, without behavioral disturbance, psychotic disturbance, mood disturbance, and anxiety; E11.9 Type 2 diabetes mellitus without complications
CPT/HCPCS: 99283; 73030; A9270